=== PATIENT | male | born 2000 | race Caucasian/White ===

== ENCOUNTER 2021-06-16 07:25 | Inpatient (IN) ==
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
[2021-06-16 08:21] LABS: Basophils # (auto) 0.02 K/uL (0-0.2); Basophils % (auto) 0.3 %; Eosinophils # (auto) 0.07 K/uL (0-0.5); Hematocrit (blood only) 42.2 % (42-52); Hemoglobin 14.5 g/dL (14.0-18.0); Immature Granulocytes # (auto) 0.01 K/uL (0.00-0.02); Immature Granulocytes % (auto) 0.1 %; Lymphocytes # (auto) 2.01 K/uL (1.2-3.4); Lymphocytes % (auto) 29.8 %; Mean Corpuscular Hemoglobin 30.3 pg (25-34); Mean Corpuscular Hgb Conc 34.4 g/dL (32-36); Mean Corpuscular Volume 88.1 fL (80-100); Mean Platelet Volume 8.8 fL (7.4-10.4); Monocytes # (auto) 0.69 K/uL (0.11-0.59); Monocytes % (auto) 10.2 %; Neutrophils # (auto) 3.95 K/uL (1.4-6.5); Neutrophils % (auto) 58.6 %; Platelet Count 273 K/uL (130-400); RDW Coefficient of Variation 12.7 % (11.5-14.5); RDW Standard Deviation 41.1 fL (36.4-46.3); Red Blood Count 4.79 M/uL (4.7-6.1); White Blood Count 6.75 K/uL (4.8-10.8)
[2021-06-16 08:27] LABS: Appearance Urine Clear (Clear); Bilirubin Urine Negative (Negative); Blood Urine Negative (Negative); Color Urine Yellow; Glucose Urine UA Negative (Negative); Ketones Urine Negative (Negative); Leukocyte Esterase Urine Negative (Negative); Nitrite Urine Negative (Negative); Protein Urine Negative (Negative); Specific Gravity Urine 1.003 (1.000-1.030); Urobilinogen Urine Negative (Negative)
[2021-06-16 08:43] LABS: Alanine Aminotransferase 15 U/L (7-52); Albumin Globulin Ratio 1.6 (0.9-2); Albumin Level 4.7 gm/dl (3.4-5.0); Alkaline Phosphatase 58 U/L (34-104); Anion Gap 8 (3-11); Aspartate Aminotransferase 18 U/L (13-39); BUN Creatinine Ratio 18.9 (10-20); Bilirubin,Total 0.3 mg/dl (0.2-1.0); Blood Urea Nitrogen 14 mg/dl (6-23); Calcium 9.6 mg/dl (8.5-10.1); Carbon Dioxide 25 mmol/L (21-32); Chloride 105 mmol/L (98-107); Creatinine Clr Calc Pharmacy 168.2 ml/min; Est GFR (African American) > 150.0 ml/min; Est GFR (Non-African American) 131.9 ml/min; Glucose 96 mg/dl (70-99(Fasting)); Potassium 3.9 mmol/L (3.5-5.1); Sodium 138 mmol/L (136-145); Total Protein 7.7 gm/dl (6.0-8.3)
[2021-06-16 08:51] LABS: Acetaminophen < 3 ug/ml (10-30); Salicylate < 3.0 mg/dl (3.0-30)
[2021-06-16 08:53] LABS: Amphetamines+Metham, Urine Neg (Neg); Barbiturates, Urine Neg (Neg); Benzodiazepine, Urine Neg (Neg); Cocaine, Urine Neg (Neg); MDMA (Ecstacy), Urine Neg (Neg); Methadone, Urine Neg (Neg); Opiate, Urine Neg (Neg); Phencyclidine, Urine Neg (Neg)
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
[2021-06-16 11:11] LABS: Influenza A virus by PCR Negative (Neg); Influenza B virus by PCR Negative (Neg); RSV by PCR Negative (Neg)
[2021-06-16 11:34] LABS: SARS CoV2 RNA(COVID-19) InHosp POSITIVE (Negative)
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
[2021-06-16] MEDS: traZODone HCL 50 MG TAB PO SCH (20:06)
[2021-06-17] MEDS: ENOXAPARIN INJ 40 MG/0.4 ML SYR SQ SCH (09:54)
[2021-06-17] MEDS: buPROPion XL 150 MG TABCR PO SCH (09:54)
--- NOTE | 2021-06-17 11:36 | Psychiatric Progress Note ---
Date of Service June 17, 2021 Impression / Recommendations Impression 21 yo with history of MDD and PTSD with worsening depression and SI with plans and rehearsal behaviors and self-harm via cutting admitted medically due to COVID+ status. Diagnostically consistent with MDD with anxious distress and PTSD. The patient is deemed unstable and requires hospitalization for diagnostic clarification, safety and stabilization, medication management and development of further coping skills. Will be treated with inclusive approach on the medical floor including psychiatry, social work and recreational therapy while being positive for COVID+ with goal of eventual transfer to inpatient psychiatry if he has two back to back negative COVID tests as due to being asymptomatic unclear when COVID symptoms began. Acute risk of self-harm is high given SI with plans and rehearsal behaviors. 06/17/21: Tolerating initiation of Wellbutrin and trazodone, no withdrawal side effects from escitalopram, remains very depressed with SI. Plan: Continue trazodone 50mg qhs and Wellbutrin XL 150mg qd. Reviewed treatment team plan, will provide with unit workbook and therapeutic activities to help support him while he's on the medical floor (1) MDD (major depressive disorder), recurrent episode, severe: (2) Suicidal ideation: (3) Post traumatic stress disorder (PTSD): 06/16/21: -1:1 observation -Cannot leave AMA, would meet 302 criteria -Recheck COVID status in 1-2 days (will need two [id number] tests, >24 hours apart, one must be PCR test for consideration for psych inpt admission at [facility]) -start trazodone 50mg qhs -d/c escitalopram start Wellbutrin XL 150mg qd Risk Factors Assessment Male: Yes : Yes Do You Have Access To A Gun?: No Health Problems: No Mental Health Diagnoses: Yes Substance Use Disorders: No Previous Attempt: No Family History of Suicide: No Previous Psychiatric Hospitalization: No Hopelessness: Yes Smoker: No Protective Factors Assessment Employed: Yes Stable Relationships: Yes Good Rapport with Provider: Yes Interval History Identifying Information 21 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 Psychiatry was consulted for recommendations and management. Chief Complaint "I wish I could be on the psych unit". Review of Systems Notes see HPI Telehealth Telehealth Options: 2-way audio and video (via zoom) For the duration of the visit, provider was performing the assessment from: The same facility as the patient After establishing a telemedicine visit, patient was: Patient was verified with two unique identifiers, Patient/authorized rep acknowledged consent and und erstanding and Gave permission to continue telehealth session Total Time Spent (minutes): 25 Subjective Subjective Patient was seen & assessed and interval progress reviewed with treatment team nursing and social work. Upset he can't be on the inpatient unit, difficult to have 1:1 all the time. Sleep was somewhat difficult due to lights being on and some noise. Appetite is stable. Still having SI but feels safe here as there is "nothing to use in the hospital". No side effects from the Wellbutrin XL nor trazodone. Physical Exam Psychiatric A+Ox3, euthymic affect Orientation: alert and oriented x 3 Speech: normal rate/rhythm/volume of speech Mood: + depressed mood Thought Process: goal directed thought process Thought Content: reality based without delusions Suicidal Thoughts: denies suicidal intent (feels safe in the hospital ); + reports suicidal thoughts and + reports suicidal plan Homicidal Thoughts: denies homicidal thoughts Hallucinations: no auditory hallucinations and no visual hallucinations Cognition: recent memory grossly intact, remote memory grossly intact, attention grossly intact and language grossly intact Estimated Intelligence: consistent with education level Insight: + fair insight Judgement: + fair judgement Vital Signs (Past 24 Hours) Last Vital Signs Temp 36.4 C L 06/16/21 22:45 Pulse 77 06/16/21 22:45 Resp 18 06/16/21 22:45 BP 132/75 06/16/21 22:45 Pulse Ox 96 06/16/21 22:45 Results & Data ([facility]) Laboratory Results Laboratory Results - last 24 hr 06/16/21 10:15 SARS-CoV-2 (PCR) POSITIVE A* Influenza Type A (PCR) Negative Influenza Type B (PCR) Negative RSV (RT-PCR) Negative Current Inpatient Medications Current Inpatient Medications: Current Inpatient Medications Acetaminophen (Acetaminophen 325 Mg Tab) 650 mg PO Q4H PRN PRN Reason: pain/fever Stop: 07/16/21 09:08 Bupropion HCl (Bupropion Xl 150 Mg Tabcr) 150 mg PO QAM JONATHAN Stop: 07/17/21 08:59 Last Admin: 06/17/21 09:54 Dose: 150 mg Documented by: Enoxaparin Sodium (Enoxaparin Inj 40 Mg/0.4 Ml Syr) 40 mg SQ QAM JONATHAN Stop: 07/17/21 08:59 Last Admin: 06/17/21 09:54 Dose: 40 mg Documented by: Trazodone HCl (Trazodone Hcl 50 Mg Tab) 50 mg PO HS JONATHAN Stop: 07/16/21 20:59 Last Admin: 06/16/21 20:06 Dose: 50 mg Documented by:
[2021-06-17] MEDS: ACETAMINOPHEN 325 MG TAB PO PRN ×2 (18:34→23:32)
--- NOTE | 2021-06-17 20:37 | Hospitalist Progress Note ---
Date of Service June 17, 2021 Assessment & Plan (1) Suicidal ideation: Plan: Patient has been having suicidal thoughts. Brought in by police. Patient cannot sign out AMA. Consult psych. Appreciate input. Recheck COVID status in 1-2 days (will need two [id number] tests, >24 hours apart, one must be PCR test for consideration for psych inpt admission at [facility]) start trazodone 50mg qhs -d/c escitalopram start Wellbutrin XL 150mg qd Due to being COVID 19 postive and confirmed by PCR testing, patient will be on the medical service. (2) MDD (major depressive disorder), recurrent episode, severe: Plan: Patient on trazodone, wellbutrin (3) SARS-CoV-2 positive: Plan: Asymptomatic. will repeat test in 2 days. Needs 2 negative tests before transferring to a psych hospital Admission and Anticipated Discharge Date Admission Date: June 16, 2021 Subjective Patient reports no new symptoms. Review of Systems Review of Systems: All systems reviewed & are unremarkable except as noted in HPI & below Physical Exam Constitutional: WD/WN, vitals as above Eyes: PERRL, conjunctivae normal, anicteric sclerae ENMT: external ear and nose normal, oropharynx normal Neck: trachea midline, no thyromegaly Respiratory: normal respiratory effort, lungs clear to auscultation Cardiovascular: RRR, no murmur, no edema Gastrointestinal (Abdomen): normal bowel sounds, soft, nontender, no hepatosplenomegaly Musculoskeletal: no cyanosis or clubbing, extremities motor strength 5/5 Skin: no rashes, warm and dry Neurologic: PERRL, EOMI, accommodation nl, no face palsy, no dysarthria Psychiatric: A+Ox3, euthymic affect Lymphatic: no cervical or axillary lymphadenopathy Results & Data Results & Data ([facility] [place]) Vital Signs (Past 12 Hours) Vital Signs Temp Pulse Resp BP Pulse Ox 06/17/21 16:36 36.5 C 79 16 118/66 96 PG Care Time/CCT Total # of Minutes Spent Total Time Spent with Patient: Total time spent is greater than 50% in coordination of care (as documented) at patient's floor/unit and/or counseling patient: Coding Level of Care Code 47317 Subseq Hosp Care Lvl 2 Diagnoses Suicidal ideation R45.851 MDD (major depressive disorder), recurrent episode, severe F33.2 SARS-CoV-2 positive U07.1
[2021-06-17] MEDS: traZODone HCL 50 MG TAB PO SCH (21:05)
[2021-06-18] MEDS: buPROPion XL 150 MG TABCR PO SCH (09:14)
[2021-06-18] MEDS: ENOXAPARIN INJ 40 MG/0.4 ML SYR SQ SCH (09:14)
--- NOTE | 2021-06-18 14:39 | Psychiatric Progress Note ---
Date of Service June 18, 2021 Impression / Recommendations Impression 21 yo with history of MDD and PTSD with worsening depression and SI with plans and rehearsal behaviors and self-harm via cutting admitted medically due to COVID+ status. Diagnostically consistent with MDD with anxious distress and PTSD. The patient is deemed unstable and requires hospitalization for diagnostic clarification, safety and stabilization, medication management and development of further coping skills. Will be treated with inclusive approach on the medical floor including psychiatry, social work and recreational therapy while being positive for COVID+ with goal of eventual transfer to inpatient psychiatry if he has two back to back negative COVID tests as due to being asymptomatic unclear when COVID symptoms began. Acute risk of self-harm is high given SI with plans and rehearsal behaviors. 06/18/21: Continue with Wellbutrin and trazodone, no withdrawal side effects from escitalopram, remains very depressed with SI. Plan: Continue trazodone 50mg qhs and Wellbutrin XL 150mg qd. Reviewed coping skills and creating virtual hope box. (1) MDD (major depressive disorder), recurrent episode, severe: (2) Suicidal ideation: (3) Post traumatic stress disorder (PTSD): 06/16/21: -1:1 observation -Cannot leave AMA, would meet 302 criteria -Recheck COVID status in 1-2 days (will need two [id number] tests, >24 hours apart, one must be PCR test for consideration for psych inpt admission at [facility]) -start trazodone 50mg qhs -d/c escitalopram start Wellbutrin XL 150mg qd Risk Factors Assessment Male: Yes : Yes Do You Have Access To A Gun?: No Health Problems: No Mental Health Diagnoses: Yes Substance Use Disorders: No Previous Attempt: No Family History of Suicide: No Previous Psychiatric Hospitalization: No Hopelessness: Yes Smoker: No Protective Factors Assessment Employed: Yes Stable Relationships: Yes Good Rapport with Provider: Yes Interval History Identifying Information 21 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 Psychiatry was consulted for recommendations and management. Chief Complaint "I'm ok". Review of Systems Notes see subjective Telehealth Telehealth Options: 2-way audio and video For the duration of the visit, provider was performing the assessment from: The same facility as the patient After establishing a telemedicine visit, patient was: Patient was verified with two unique identifiers, Patient/authorized rep acknowledged consent and understanding and Gave permission to continue telehealth session Total Time Spent (minutes): 20 Subjective Subjective Patient was seen & assessed and interval progress reviewed with treatment team nursing and social work. Met with [facility] providers today and saw psychiatric liasons last night and today. Slept well last night, with only one awakening for vital signs, and trazodone helped, no morning fatigue. Wellbutrin XL with no side effects so far. Did have a headache yesterday and took two prn doses of acetaminophen. Still having SI "but not as bad as it has been". Reviewed coping strategies. Physical Exam Psychiatric Orientation: alert and oriented x 3 Apperance: appropriately dressed and appropriately groomed Eye Contact: good eye contact Motor Behavior: no abnormal motor movements Speech: normal rate/rhythm/volume of speech Affect: + depressed affect Mood: + depressed mood Thought Process: goal directed thought process Thought Content: reality based without delusions Suicidal Thoughts: denies suicidal plan and denies suicidal intent; + reports suicidal thoughts (feels safe in the hospital ) Homicidal Thoughts: denies homicidal thoughts Hallucinations: no auditory hallucinations and no visual hallucinations Cognition: recent memory grossly intact, remote memory grossly intact, attention grossly intact and language grossly intact Estimated Intelligence: consistent with education level Insight: + fair insight Judgement: + fair judgement Vital Signs (Past 24 Hours) Last Vital Signs Temp 36.9 C 06/18/21 08:46 Pulse 64 06/18/21 08:46 Resp 16 06/18/21 08:46 BP 100/58 L 06/18/21 08:46 Pulse Ox 97 06/18/21 08:46 Results & Data ([facility]) Current Inpatient Medications Current Inpatient Medications: Current Inpatient Medications Acetaminophen (Acetaminophen 325 Mg Tab) 650 mg PO Q4H PRN PRN Reason: pain/fever Stop: 07/16/21 09:08 Last Admin: 06/17/21 23:32 Dose: 650 mg Documented by: Bupropion HCl (Bupropion Xl 150 Mg Tabcr) 150 mg PO QAM JONATHAN Stop: 07/17/21 08:59 Last Admin: 06/18/21 09:14 Dose: 150 mg Documented by: Enoxaparin Sodium (Enoxaparin Inj 40 Mg/0.4 Ml Syr) 40 mg SQ QAM [facility] Stop: 07/17/21 08:59 Last Admin: 06/18/21 09:14 Dose: 40 mg Documented by: Trazodone HCl (Trazodone Hcl 50 Mg Tab) 50 mg PO HS [facility] Stop: 07/16/21 20:59 Last Admin: 06/17/21 21:05 Dose: 50 mg Documented by:
--- NOTE | 2021-06-18 20:53 | Hospitalist Progress Note ---
Date of Service June 18, 2021 Assessment & Plan (1) Suicidal ideation: Plan: Patient has been having suicidal thoughts. Brought in by police. Patient cannot sign out AMA. Consult psych. Appreciate input. start trazodone 50mg qhs -d/c escitalopram start Wellbutrin XL 150mg qd Due to being COVID 19 postive and confirmed by PCR testing, patient will be on the medical service. Repeated test on 06/18 was positive. Will recheck in 2 days (Tuesday) (2) MDD (major depressive disorder), recurrent episode, severe: Plan: Patient on trazodone, wellbutrin (3) SARS-CoV-2 positive: Plan: Asymptomatic. 3 positive tests. will repeat test on Tuesday. Will need 2 consecutive negative test 24 hours apart with one test being PCR. 10 +days post test should also be sufficient. Admission and Anticipated Discharge Date Admission Date: June 16, 2021 Subjective Patient reports no new symptoms. Review of Systems Review of Systems: All systems reviewed & are unremarkable except as noted in HPI & below Physical Exam Constitutional: WD/WN, vitals as above Results & Data Results & Data ([facility]) Vital Signs (Past 12 Hours) Vital Signs Temp Pulse Resp BP Pulse Ox 06/18/21 15:25 36.6 C 79 16 96/59 L 97 PG Care Time/CCT Total # of Minutes Spent Total Time Spent with Patient: Total time spent is greater than 50% in coordination of care (as documented) at patient's floor/unit and/or counseling patient: Coding Level of Care Code 43800 Subseq Hosp Care Lvl 1 Diagnoses Suicidal ideation R45.851 MDD (major depressive disorder), recurrent episode, severe F33.2 SARS-CoV-2 positive U07.1
[2021-06-18] MEDS: traZODone HCL 50 MG TAB PO SCH (21:19)
[2021-06-19] MEDS: ENOXAPARIN INJ 40 MG/0.4 ML SYR SQ SCH (08:21)
[2021-06-19] MEDS: buPROPion XL 150 MG TABCR PO SCH (09:01)
--- NOTE | 2021-06-19 11:24 | Psychiatric Progress Note ---
Date of Service June 19, 2021 Impression / Recommendations Impression 21 yo with history of MDD and PTSD with worsening depression and SI with plans and rehearsal behaviors and self-harm via cutting admitted medically due to COVID+ status. Diagnostically consistent with MDD with anxious distress and PTSD. The patient is deemed unstable and requires hospitalization for diagnostic clarification, safety and stabilization, medication management and development of further coping skills. Being treated with inclusive approach on the medical floor including psychiatry, social work and recreational therapy while being positive for COVID+ with goal of eventual transfer to inpatient psychiatry if he has two back to back negative COVID tests as due to being asymptomatic unclear when COVID symptoms began or at completion of 10 days of isolation. Acute risk of self-harm is high given SI with plans and rehearsal behaviors. 06/19/21: Repeat COVID test positive. Hospitalist will repeat again on 06/20/21. Continue with Wellbutrin and trazodone, no withdrawal side effects from escitalopram, remains very depressed with intermittent SI and strong urges to self-harm. Plan: Continue trazodone 50mg qhs and Wellbutrin XL 150mg qd. Could consider addition of prazosin in the future if bad dreams persist, asked him to track these. Reviewed coping skills and processed challenge of remaining in isolation due to COVID+ status. Discussed options for transfer to inpatient psych facility that accepts COVID+ patients but he prefers to stay at [facility] with consult service as we are doing currently until he is safe for transfer to psychiatric unit with negative COVID tests or after completed 10 days of isolation. (1) MDD (major depressive disorder), recurrent episode, severe: (2) Suicidal ideation: (3) Post traumatic stress disorder (PTSD): -1:1 observation -Cannot leave AMA, would meet 302 criteria -Recheck COVID status in 1-2 days (will need two [id number] tests, >24 hours apart, one must be PCR test for consideration for psych inpt admission at [facility]) -c/w trazodone 50mg qhs -d/c escitalopram and c/w Wellbutrin XL 150mg qd Risk Factors Assessment Male: Yes : Yes Do You Have Access To A Gun?: No Health Problems: No Mental Health Diagnoses: Yes Substance Use Disorders: No Previous Attempt: No Family History of Suicide: No Previous Psychiatric Hospitalization: No Hopelessness: Yes Smoker: No Protective Factors Assessment Employed: Yes Stable Relationships: Yes Good Rapport with Provider: Yes Interval History Identifying Information 21 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 Psychiatry was consulted for recommendations and management. Chief Complaint "I'm pretty frustrated and bored". Review of Systems Notes see subjective, stable appetite, denies any other physical complaints Telehealth Telehealth Options: 2-way audio and video For the duration of the visit, provider was performing the assessment from: The same facility as the patient After establishing a telemedicine visit, patient was: Patient was verified with two unique identifiers, Patient/authorized rep acknowledged consent and understanding and Gave permission to continue telehealth session Total Time Spent (minutes): 30 Subjective Subjective Patient was seen & assessed and interval progress reviewed with treatment team nursing and social work. Met with Hugo via zoom due to his positive COVID status alongside social work and recreational therapist from [facility]. We reviewed his treatment team plan. He noted ongoing frustration and boredom with having to be medical floor due to positive COVID status. Reviewed psych liason's update regarding infection control requirements for two negative tests or 10 days from positive test. He feels the trazodone is helping him fall asleep but some awakening at night, last night at 4am due to bad dream related to family. No side effects from Wellbutrin, he's not noticing any benefits yet. His therapist dropped off some workbooks, including a CBT focused one, which he is doing as well as reviewing the [facility] patient handbook. No SI today which he attributes to having no means available in the hospital, still thinking of plans he could act on if he were outside the hospital "thinking about what I could do in the future". He's considering deferment and was encouraged to contact [employer] [facility] student care and advocacy to discuss academic options and potential benefits/consequences of various decisions.Continues to have urges to self-harm but not acting on these because "I don't want to have any of my freedoms taken away more than the restrictions that I already have". Reviewed ways our service can contact to help support him. he denied any other concerns nor needs. Physical Exam Psychiatric Orientation: alert and oriented x 3 Apperance: appropriately dressed and appropriately groomed Eye Contact: good eye contact Motor Behavior: no abnormal motor movements Speech: normal rate/rhythm/volume of speech Affect: + depressed affect Mood: + depressed mood and + anxious mood Thought Process: goal directed thought process Thought Content: reality based without delusions Suicidal Thoughts: denies suicidal plan and denies suicidal intent; + reports suicidal thoughts (feels safe in the hospital ) Homicidal Thoughts: denies homicidal thoughts Hallucinations: no auditory hallucinations and no visual hallucinations Cognition: recent memory grossly intact, remote memory grossly intact, attention grossly intact and language grossly intact Estimated Intelligence: consistent with education level Insight: + fair insight Judgement: + fair judgement Vital Signs (Past 24 Hours) Last Vital Signs Temp 36.4 C L 06/19/21 09:05 Pulse 64 06/19/21 09:05 Resp 18 06/19/21 09:05 BP 112/66 06/19/21 09:05 Pulse Ox 98 06/19/21 09:05 Results & Data ([facility]) Laboratory Results Laboratory Results - last 24 hr 06/18/21 16:10 SARS-CoV-2, RNA, NAAT POSITIVE A* Current Inpatient Medications Current Inpatient Medications: Current Inpatient Medications Acetaminophen (Acetaminophen 325 Mg Tab) 650 mg PO Q4H PRN PRN Reason: pain/fever Stop: 07/16/21 09:08 Last Admin: 06/17/21 23:32 Dose: 650 mg Documented by: Bupropion HCl (Bupropion Xl 150 Mg Tabcr) 150 mg PO QAM [facility] Stop: 07/17/21 08:59 Last Admin: 06/19/21 09:01 Dose: 150 mg Documented by: Enoxaparin Sodium (Enoxaparin Inj 40 Mg/0.4 Ml Syr) 40 mg SQ QAM [facility] Stop: 07/17/21 08:59 Last Admin: 06/19/21 08:21 Dose: Not Given Documented by: Trazodone HCl (Trazodone Hcl 50 Mg Tab) 50 mg PO HS [facility] Stop: 07/16/21 20:59 Last Admin: 06/18/21 21:19 Dose: 50 mg Documented by:
--- NOTE | 2021-06-19 15:16 | Hospitalist Progress Note ---
Date of Service June 19, 2021 Assessment & Plan (1) Suicidal ideation: Plan: Followed by psychiatric medicine continue trazodone Due to being COVID 19 postive and confirmed by PCR testing, patient will be on the medical service. Repeated test on 06/18 was positive. Will recheck in 2 days (Tuesday) (2) MDD (major depressive disorder), recurrent episode, severe: Plan: Patient on trazodone, wellbutrin (3) SARS-CoV-2 positive: Plan: Asymptomatic. 3 positive tests. will repeat test on Tuesday. Will need 2 consecutive negative test 24 hours apart with one test being PCR. 10 +days post test should also be sufficient. Admission and Anticipated Discharge Date Admission Date: June 16, 2021 Subjective Tests positive again yesterday on 06/18, discussed with psychiatry team, will repeat Covid test tomorrow, if Covid test is persistently positive we will require 10-day quarantine before transferring to the psychiatric fuentes Review of Systems Constitutional: no fever and no sweats Eyes: no blind spots Ear, Nose, Mouth, Throat: no ear pain and no ear trauma Respiratory: no cough and no change in sputum Cardiovascular: no chest pain and no chest pain with activity Gastrointestinal: no abdominal pain Genitourinary: no dysuria Musculoskeletal: no back pain and no radicular pain Integumentary: no changing lesions Neurologic: no gait abnormality and no falls Psychiatric: no behavioral changes Endocrine: no fatigue Allergy / Immunological: no GI upset with certain foods Physical Exam Constitutional: WD/WN, vitals as above Eyes: PERRL, conjunctivae normal, anicteric sclerae ENMT: external ear and nose normal, oropharynx normal Neck: trachea midline, no thyromegaly Respiratory: normal respiratory effort, lungs clear to auscultation Cardiovascular: RRR, no murmur, no edema Gastrointestinal (Abdomen): normal bowel sounds, soft, nontender, no hepatosplenomegaly Musculoskeletal: no cyanosis or clubbing, extremities motor strength 5/5 Skin: no rashes, warm and dry Neurologic: PERRL, EOMI, accommodation nl, no face palsy, no dysarthria Psychiatric: A+Ox3, euthymic affect Orientation: alert and oriented x 3 Apperance: appropriately dressed and appropriately groomed Eye Contact: good eye contact Motor Behavior: no abnormal motor movements Speech: normal rate/rhythm/volume of speech Affect: + depressed affect Mood: + depressed mood and + anxious mood Thought Process: goal directed thought process Thought Content: reality based without delusions Suicidal Thoughts: denies callahan icidal plan and denies suicidal intent; + reports suicidal thoughts (feels safe in the hospital ) Homicidal Thoughts: denies homicidal thoughts Hallucinations: no auditory hallucinations and no visual hallucinations Cognition: recent memory grossly intact, remote memory grossly intact, attention grossly intact and language grossly intact Estimated Intelligence: consistent with education level Insight: + fair insight Judgement: + fair judgement Lymphatic: no cervical or axillary lymphadenopathy Results & Data Results & Data ([facility]) Vital Signs (Past 12 Hours) Vital Signs Temp Pulse Resp BP Pulse Ox 06/19/21 09:05 36.4 C L 64 18 112/66 98 06/19/21 04:46 117/77 PG Care Time/CCT Total # of Minutes Spent Total Time Spent with Patient: Total time spent is greater than 50% in coordination of care (as documented) at patient's floor/unit and/or counseling patient: Coding Level of Care Code 97841 Subseq Hosp Care Lvl 1 Diagnoses Suicidal ideation R45.851 MDD (major depressive disorder), recurrent episode, severe F33.2 SARS-CoV-2 positive U07.1
[2021-06-19] MEDS: traZODone HCL 50 MG TAB PO SCH (21:33)
[2021-06-20] MEDS: buPROPion XL 150 MG TABCR PO SCH (09:00)
[2021-06-20] MEDS: ENOXAPARIN INJ 40 MG/0.4 ML SYR SQ SCH ×2 (09:00→09:03)
--- NOTE | 2021-06-20 14:06 | Psychiatric Progress Note ---
Date of Service June 20, 2021 Impression / Recommendations Impression 21 yo with history of MDD and PTSD with worsening depression and SI with plans and rehearsal behaviors and self-harm via cutting admitted medically due to COVID+ status. Diagnostically consistent with MDD with anxious distress and PTSD. The patient is deemed unstable and requires hospitalization for diagnostic clarification, safety and stabilization, medication management and development of further coping skills. Being treated with inclusive approach on the medical floor including psychiatry, social work and recreational therapy while being positive for COVID+ with goal of eventual transfer to inpatient psychiatry if he has two back to back negative COVID tests as due to being asymptomatic unclear when COVID symptoms began or at completion of 10 days of isolation. Acute risk of self-harm is high given SI with plans and rehearsal behaviors. 06/20/21: some improvement, Continued inpatient hospitalization is medically necessary for ongoing monitoring and safety. (1) MDD (major depressive disorder), recurrent episode, severe: (2) Suicidal ideation: (3) Post traumatic stress disorder (PTSD): continue current meds and treatment plan today's COVID test is negative so possible transfer tomorrow if continues to test negative. 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 He remains asymptomatic. Patient seen in respiratory i solation with PPE. Chief Complaint "I think I'm doing better, mainly as I'm getting sleep." Review of Systems Notes denies physical complaints such as SHEPHERD, N, V, D. Subjective Subjective Patient was seen & assessed and interval progress reviewed with nursing and social work. He reports improved sleep. He is working through the unit patient handbook. He reports that if not in hospital he is not sure if could maintain safety as mood remains low and "this cutting thing is new, I'm not sure I have a handle on it yet." Physical Exam Psychiatric Orientation: alert and oriented x 3 Apperance: appropriately dressed and appropriately groomed Eye Contact: good eye contact Motor Behavior: no abnormal motor movements Speech: normal rate/rhythm/volume of speech Affect: + depressed affect Mood: + depressed mood Thought Process: goal directed thought process Thought Content: reality based without delusions Suicidal Thoughts: denies suicidal thoughts (unable to safety plan), denies suicidal plan and denies suicidal intent Homicidal Thoughts: denies homicidal thoughts Hallucinations: no auditory hallucinations and no visual hallucinations Cognition: recent memory grossly intact, remote memory grossly intact, attention grossly intact and language grossly intact Estimated Intelligence: consistent with education level Insight: + fair insight Judgement: + fair judgement Vital Signs (Past 24 Hours) Last Vital Signs Temp 36.6 C 06/20/21 08:04 Pulse 66 06/20/21 08:04 Resp 16 06/20/21 08:04 BP 106/67 06/20/21 08:04 Pulse Ox 98 06/20/21 08:04 Results & Data ([facility]) Laboratory Results Laboratory Results - last 24 hr 06/20/21 Unknown SARS-CoV-2, RNA, NAAT NEGATIVE Current Inpatient Medications Current Inpatient Medications: Current Inpatient Medications Acetaminophen (Acetaminophen 325 Mg Tab) 650 mg PO Q4H PRN PRN Reason: pain/fever Stop: 07/16/21 09:08 Last Admin: 06/17/21 23:32 Dose: 650 mg Documented by: Bupropion HCl (Bupropion Xl 150 Mg Tabcr) 150 mg PO QAM [facility] Stop: 07/17/21 08:59 Last Admin: 06/20/21 09:00 Dose: 150 mg Documented by: Enoxaparin Sodium (Enoxaparin Inj 40 Mg/0.4 Ml Syr) 40 mg SQ QAM [facility] Stop: 07/17/21 08:59 Last Admin: 06/20/21 09:03 Dose: Not Given Documented by: Trazodone HCl (Trazodone Hcl 50 Mg Tab) 50 mg PO HS [facility] Stop: 07/16/21 20:59 Last Admin: 06/19/21 21:33 Dose: 50 mg Documented by:
--- NOTE | 2021-06-20 18:35 | Hospitalist Progress Note ---
Date of Service June 20, 2021 Assessment & Plan (1) Suicidal ideation: Plan: Followed by psychiatric medicine Stayed in the medical floor due to positive Covid test, asymptomatic, today on 06/20 the Covid test is negative, the psychiatric unit requires another negative test after 24 hours (2) MDD (major depressive disorder), recurrent episode, severe: Plan: Patient on trazodone, wellbutrin (3) SARS-CoV-2 positive: Plan: Plan as mentioned above Admission and Anticipated Discharge Date Admission Date: June 16, 2021 Subjective Covid test negative, discussed with the psychiatry unit he required another negative test after 24 hours, order was placed for tomorrow Physical Exam Constitutional: WD/WN, vitals as above Eyes: PERRL, conjunctivae normal, anicteric sclerae ENMT: external ear and nose normal, oropharynx normal Neck: trachea midline, no thyromegaly Respiratory: normal respiratory effort, lungs clear to auscultation Cardiovascular: RRR, no murmur, no edema Gastrointestinal (Abdomen): normal bowel sounds, soft, nontender, no hepatosplenomegaly Musculoskeletal: no cyanosis or clubbing, extremities motor strength 5/5 Skin: no rashes, warm and dry Neurologic: PERRL, EOMI, accommodation nl, no face palsy, no dysarthria Psychiatric: A+Ox3, euthymic affect Orientation: alert and oriented x 3 Apperance: appropriately dressed and appropriately groomed Eye Contact: good eye contact Motor Behavior: no abnormal motor movements Speech: normal rate/rhythm/volume of speech Affect: + depressed affect Mood: + depressed mood and + anxious mood Thought Process: goal directed thought process Thought Content: reality based without delusions Suicidal Thoughts: denies suicidal plan and denies suicidal intent; + reports suicidal thoughts (feels saf e in the hospital ) Homicidal Thoughts: denies homicidal thoughts Hallucinations: no auditory hallucinations and no visual hallucinations Cognition: recent memory grossly intact, remote memory grossly intact, attention grossly intact and language grossly intact Estimated Intelligence: consistent with education level Insight: + fair insight Judgement: + fair judgement Lymphatic: no cervical or axillary lymphadenopathy Results & Data Results & Data ([facility]) Vital Signs (Past 12 Hours) Vital Signs Temp Pulse Resp BP Pulse Ox 06/20/21 15:32 36.7 C 65 18 110/65 98 06/20/21 08:04 36.6 C 66 16 106/67 98 PG Care Time/CCT Total # of Minutes Spent Total Time Spent with Patient: Total time spent is greater than 50% in coordination of care (as documented) at patient's floor/unit and/or counseling patient: Coding Level of Care Code 05320 Subseq Hosp Care Lvl 2 Diagnoses Suicidal ideation R45.851 MDD (major depressive disorder), recurrent episode, severe F33.2 SARS-CoV-2 positive U07.1
[2021-06-20] MEDS: traZODone HCL 50 MG TAB PO SCH (21:08)
[2021-06-21] MEDS ORDERED: buPROPion SR 150 MG TABCR PO SCH (09:00)
[2021-06-21 15:24] LABS: Influenza A virus by PCR Negative (Neg); Influenza B virus by PCR Negative (Neg); RSV by PCR Negative (Neg); SARS CoV2 RNA(COVID-19) InHosp NEGATIVE (Negative)
--- NOTE | 2021-06-21 15:42 | Psychiatric Progress Note ---
Date of Service June 21, 2021 Impression / Recommendations Impression 21 yo with history of MDD and PTSD with worsening depression and SI with plans and rehearsal behaviors and self-harm via cutting admitted medically due to COVID+ status. Diagnostically consistent with MDD with anxious distress and PTSD. The patient is deemed unstable and requires hospitalization for diagnostic clarification, safety and stabilization, medication management and development of further coping skills. Being treated with inclusive approach on the medical floor including psychiatry, social work and recreational therapy while being positive for COVID+ with goal of eventual transfer to inpatient psychiatry if he has two back to back negative COVID tests as due to being asymptomatic unclear when COVID symptoms began or at completion of 10 days of isolation. Acute risk of self-harm is high given SI with plans and rehearsal behaviors. 06/21/21: as per Dr. Quiros above. Mood essentially the same as yesterday. Continued inpatient hospitalization is medically necessary for ongoing mo nitoring and safety. (1) MDD (major depressive disorder), recurrent episode, severe: (2) Suicidal ideation: (3) Post traumatic stress disorder (PTSD): continue current meds and treatment plan pursuing out of network single case agreement for discharge to [facility] as 2 network units within 60 miles have no beds today. Dr. 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 He remains asymptomatic. Patient seen earlier today in respiratory isolation with PPE. Chief Complaint "I really want treatment, I need more before I go home." Review of Systems Notes no physical complaints as above Subjective Subjective Patient was seen & assessed and interval progress reviewed with nursing and social work. States he didn't sleep as well last night due to nightmares. Unable to contract for safety outside of the hospital. Has tested negative for COVID. Reviewed bed search process. Physical Exam Psychiatric A+Ox3, euthymic affect Orientation: alert and oriented x 3 Apperance: appropriately dressed and appropriately groomed Eye Contact: good eye contact Motor Behavior: no abnormal motor movements Speech: normal rate/rhythm/volume of speech Affect: + depressed affect Mood: + depressed mood and + anxious mood Thought Process: goal directed thought process Thought Content: reality based without delusions Suicidal Thoughts: denies suicidal plan and denies suicidal intent; + reports suicidal thoughts (feels safe in the hospital ) Homicidal Thoughts: denies homicidal thoughts Hallucinations: no auditory hallucinations and no visual hallucinations Cognition: recent memory grossly intact, remote memory grossly intact, attention grossly intact and language grossly intact Estimated Intelligence: consistent with education level Insight: + fair insight Judgement: + fair judgement Vital Signs (Past 24 Hours) Last Vital Signs Temp 36.9 C 06/21/21 14:48 Pulse 80 06/21/21 14:48 Resp 18 06/21/21 14:48 BP 114/63 06/21/21 14:48 Pulse Ox 100 06/21/21 14:48 Results & Data ([facility]) Laboratory Results Laboratory Results - last 24 hr 06/21/21 06/21/21 05:54 Unknown SARS-CoV-2 (PCR) NEGATIVE Influenza Type A (PCR) Negative Influenza Type B (PCR) Negative RSV (RT-PCR) Negative SARS-CoV-2, RNA, NAAT NEGATIVE Current Inpatient Medications Current Inpatient Medications: Current Inpatient Medications Acetaminophen (Acetaminophen 325 Mg Tab) 650 mg PO Q4H PRN PRN Reason: pain/fever Stop: 07/16/21 09:08 Last Admin: 06/17/21 23:32 Dose: 650 mg Documented by: Bupropion HCl (Bupropion Sr 150 Mg Tabcr) 150 mg PO QAM [facility] Stop: 07/21/21 08:59 Last Admin: 06/21/21 10:54 Dose: 150 mg Documented by: Trazodone HCl (Trazodone Hcl 50 Mg Tab) 50 mg PO HS [facility] Stop: 07/16/21 20:59 Last Admin: 06/20/21 21:08 Dose: 50 mg Documented by:
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
== END 2021-06-21 18:40 | DRG 178 ==
LOC: ED 07:25 → SUATTDRO 11:45 → EDINP 11:45 → 3W 20:49

== ENCOUNTER 2021-06-21 16:54 | Inpatient (IN) ==
[~2021-06-21 16:54] MED LIST: ACETAMINOPHEN 325 MG TAB PO PRN; ALUMINUM/MAGNESIUM SUSP 30 ML UDC PO PRN; BISMUTH SUBSALICYLATE LIQD 236 ML PO PRN; MAGNESIUM HYDROXIDE SUSP 30 ML UDC PO PRN; SODIUM CHLORIDE 0.65% NA SOLN 45 ML (OCEAN) PRN; hydrOXYzine HCl 25 MG TAB PO PRN
[2021-06-21] MEDS: traZODone HCL 50 MG TAB PO SCH (20:57)
[2021-06-21] MEDS ORDERED: Flu Vaccine (Fluarix) 0.5mL SYR (Standard Dose) IM ONE (21:15)
[2021-06-22] MEDS: traZODone HCL 50 MG TAB PO SCH ×2 (01:49→21:08)
[2021-06-22] MEDS: buPROPion SR 150 MG TABCR PO SCH (10:28)
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
[2021-06-23] MEDS: buPROPion SR 150 MG TABCR PO SCH (08:59)
--- NOTE | 2021-06-23 15:45 | Psychiatric Progress Note ---
Date of Service June 23, 2021 Impression / Recommendations Impression 21 yo with history of MDD and PTSD with worsening depression and SI with plans and rehearsal behaviors and self-harm via cutting admitted medically 06/16/21 due to COVID+ status. He remained in repiratory isolationg for 5 days pending 2 negative COVID tests with transfer to the unit last pm. 06/23/21--recurrence of SI today in anticipation of family meeting, seems disconnected when discusses plan (1) MDD (major depressive disorder), recurrent episode, severe: (2) Post traumatic stress disorder (PTSD): 06/23/21: Titrate Wellbutrin XL 300 mg daily. 06/22/21: The patient was admitted to the [facility] ([facility] mental health unit) on q15 min checks (behavioral with suicide precautions) for safety. The patient will participate in group, recreational, and milieu therapies and will be offered additional individual and family sessions as clinically appropriate. Continue trazodone and Wellbutrin trial, he remains aware of SI warnings/black box with antidepressants. He would prefer to be on Wellbutrin XL formulation for longer duration of action now that sleep improved with trazodone. 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 He was admitted to the psychiatry unit on 06/21/21 on a 201 commitment. Chief Complaint "I just feel worse today, there's the meeting with my mom and I just don't understand how I can keep myself safe." Review of Systems Sleep Information Total Hours of Sleep: 6.5 Sleep Comments: pt given trazodone per rn. pt on q-15 minute checks Meal Information Percent Meal Consumed - Breakfast: 100 Percent Meal Consumed - Lunch: 100 Percent Meal Consumed - Dinner: 100 Subjective Subjective Patient was seen & assessed and interval progress reviewed with nursing and social work. Reported his attachment to recent cutting behaviors to calm down, likes the pressure on arms and the blood by using the butter knife. 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 Reports he doesn't feel that the good that could come at some point in life would outweigh the amount of hurt to get there so in that sense he's still experiencing suicidal ideation. Physical Exam Psychiatric Orientation: alert and oriented x 3 Apperance: appropriately dressed and appropriately groomed Eye Contact: good eye contact Motor Behavior: no abnormal motor movements Speech: normal rate/rhythm/volume of speech Affect: + depressed affect Mood: + depressed mood Thought Process: goal directed thought process Thought Content: reality based without delusions Suicidal Thoughts: denies suicidal intent; + reports suicidal thoughts and + reports suicidal plan (cut) Homicidal Thoughts: denies homicidal thoughts Hallucinations: no auditory hallucinations and no visual hallucinations Cognition: attention grossly intact and language grossly intact Estimated Intelligence: consistent with education level Insight: + limited insight Judgement: + limited judgement Vital Signs (Past 24 Hours) Last Vital Signs Temp 36.3 C L 06/23/21 06:41 Pulse 85 06/23/21 06:42 Resp 16 06/23/21 06:41 BP 100/58 L 06/23/21 06:42 Pulse Ox 100 06/21/21 19:34 Results & Data ([facility]) Current Inpatient Medications Current Inpatient Medications: Current Inpatient Medications Acetaminophen (Acetaminophen 325 Mg Tab) 650 mg PO Q4H PRN PRN Reason: Headache or Minor Fever Stop: 07/21/21 16:53 Al Hydrox/Mg Hydrox/Simethicone (Aluminum/Magnesium Susp 30 Ml Udc) 30 ml PO Q4H PRN PRN Reason: GI Upset Stop: 07/21/21 16:53 Bismuth Subsalicylate (Bismuth Subsalicylate Liqd 236 Ml) 15 ml PO UD PRN PRN Reason: Loose Stool Stop: 07/21/21 16:53 Bupropion HCl (Bupropion Sr 150 Mg Tabcr) 150 mg PO QAM JONATHAN Stop: 07/22/21 10:14 Last Admin: 06/23/21 08:59 Dose: 150 mg Documented by: Hydroxyzine HCl (Hydroxyzine Hcl 25 Mg Tab) 50 mg PO HSZ PRN PRN Reason: Insomnia Stop: 07/21/21 16:53 Hydroxyzine HCl (Hydroxyzine Hcl 25 Mg Tab) 25 mg PO Q4H PRN PRN Reason: Anxiety Stop: 07/21/21 16:53 Magnesium Hydroxide (Magnesium Hydroxide Susp 30 Ml Udc) 30 ml PO DAILY PRN PRN Reason: Constipation Stop: 07/21/21 16:53 Sodium Chloride (Sodium Chloride 0.65% Na Soln 45 Ml (Angelica)) 1 - 2 sprays NA PRN PRN PRN Reason: Nasal Dryness/Congestion Stop: 07/21/21 16:53 Trazodone HCl (Trazodone Hcl 50 Mg Tab) 50 mg PO HS JONATHAN Stop: 07/21/21 20:59 Last Admin: 06/22/21 21:08 Dose: 50 mg Documented by: Mental Health & Subst Abuse Tx Psychiatrist Name of Psychiatrist: ZINA Ervin Psychiatrist's Date of Appointment with Psychiatrist: 06/30/21 Time of Appointment with Psychiatrist: 11:00 a.m. Psychiatric Appointment Comment: In person - [facility] Therapist Name of Therapist: Dr. Teri Shepherd Therapist's Electronics Technology Instructor Name of Electronics Technology Instructor: ZINA Virgen Phone Number for Electronics Technology Instructor: [phone] Date of Appointment with Electronics Technology Instructor: 06/25/21 Time of Appointment with Electronics Technology Instructor: 2:00 p.m. Case Management Appointment Comment: She will call you Post Discharge Appointments Primary Care Physician Name Of Family Doctor: [facility] Primary Care Time of Appointment with PCP: Please follow up as needed Provider Appointment Comment: [facility] Contact Information Discharge Discharge Address: [address] [place] [address], [place] [address]
[2021-06-23] MEDS: traZODone HCL 50 MG TAB PO SCH (22:00)
[2021-06-24] MEDS: buPROPion XL 300 MG TABCR PO SCH (08:57)
--- NOTE | 2021-06-24 13:44 | Psychiatric Progress Note ---
Date of Service June 24, 2021 Impression / Recommendations Impression 21 yo with history of MDD and PTSD with worsening depression and SI with plans and rehearsal behaviors and self-harm via cutting admitted medically 06/16/21 due to COVID+ status. He remained in repiratory isolationg for 5 days pending 2 negative COVID tests with transfer to the unit last pm. 06/23/21--processing family meeting (1) MDD (major depressive disorder), recurrent episode, severe: (2) Post traumatic stress disorder (PTSD): 06/24/21: tolerating Wellbutrin increase. Safety planning. 06/23/21: Titrate Wellbutrin XL 300 mg daily. 06/22/21: The patient was admitted to the [facility] ([facility] mental health unit) on q15 min checks (behavioral with suicide precautions) for safety. The patient will participate in group, recreational, and milieu therapies and will be offered additional individual and family sessions as clinically appropriate. Continue trazodone and Wellbutrin trial, he remains aware of SI warnings/black box with antidepressants. He would prefer to be on Wellbutrin XL formulation for longer duration of action now that sleep improved with trazodone. 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 He was admitted to the psychiatry unit on 06/21/21 on a 201 commitment. Chief Complaint "I blocked my mom", referring to rescinding his LARRY. Review of Systems Sleep Information Total Hours of Sleep: 5.5 Sleep Comments: pt given trazodone per rn. pt on q-15 minute checks Meal Information Percent Meal Consumed - Breakfast: 100 Percent Meal Consumed - Lunch: 100 Percent Meal Consumed - Dinner: 100 Subjective Subjective Patient was seen & assessed and interval progress reviewed with treatment team. Family session was emotional and "I knew nothing would change" but he is relieved that he doesn't have to deal with questions after hospitalization. He is feeling somewhat more stable than yesterday but also admits that he is mainly focussed on discharge soon as census is down and limited peers for group therapy. He discussed transition back to class and RA responsibilities. Physical Exam Psychiatric Orientation: alert and oriented x 3 Apperance: appropriately dressed and appropriately groomed Eye Contact: good eye contact Motor Behavior: no abnormal motor movements Speech: normal rate/rhythm/volume of speech Affect: + depressed affect Mood: + depressed mood Thought Process: goal directed thought process Thought Content: reality based without delusions Suicidal Thoughts: denies suicidal thoughts, denies suicidal plan (some urges to cut to SIB) and denies suicidal intent Homicidal Thoughts: denies homicidal thoughts Hallucinations: no auditory hallucinations and no visual hallucinations Cognition: attention grossly intact and language grossly intact Estimated Intelligence: consistent with education level Vital Signs (Past 24 Hours) Last Vital Signs Temp 36.4 C L 06/24/21 06:32 Pulse 74 06/24/21 06:33 Resp 16 06/24/21 06:32 BP 92/51 L 06/24/21 06:33 Pulse Ox 100 06/21/21 19:34 Results & Data ([facility]) Current Inpatient Medications Current Inpatient Medications: Current Inpatient Medications Acetaminophen (Acetaminophen 325 Mg Tab) 650 mg PO Q4H PRN PRN Reason: Headache or Minor Fever Stop: 07/21/21 16:53 Al Hydrox/Mg Hydrox/Simethicone (Aluminum/Magnesium Susp 30 Ml Udc) 30 ml PO Q4H PRN PRN Reason: GI Upset Stop: 07/21/21 16:53 Bismuth Subsalicylate (Bismuth Subsalicylate Liqd 236 Ml) 15 ml PO UD PRN PRN Reason: Loose Stool Stop: 07/21/21 16:53 Bupropion HCl (Bupropion Xl 300 Mg Tabcr) 300 mg PO QAM JONATHAN Stop: 07/24/21 08:59 Last Admin: 06/24/21 08:57 Dose: 300 mg Documented by: Hydroxyzine HCl (Hydroxyzine Hcl 25 Mg Tab) 50 mg PO HSZ PRN PRN Reason: Insomnia Stop: 07/21/21 16:53 Hydroxyzine HCl (Hydroxyzine Hcl 25 Mg Tab) 25 mg PO Q4H PRN PRN Reason: Anxiety Stop: 07/21/21 16:53 Magnesium Hydroxide (Magnesium Hydroxide Susp 30 Ml Udc) 30 ml PO DAILY PRN PRN Reason: Constipation Stop: 07/21/21 16:53 Sodium Chloride (Sodium Chloride 0.65% Na Soln 45 Ml (Meigs)) 1 - 2 sprays NA PRN PRN PRN Reason: Nasal Dryness/Congestion Stop: 07/21/21 16:53 Trazodone HCl (Trazodone Hcl 50 Mg Tab) 50 mg PO HS JONATHAN Stop: 07/21/21 20:59 Last Admin: 06/23/21 22:00 Dose: 50 mg Documented by: Mental Health & Subst Abuse Tx Psychiatrist Name of Psychiatrist: ZINA Ervin Psychiatrist's Date of Appointment with Psychiatrist: 06/30/21 Time of Appointment with Psychiatrist: 11:00 a.m. Psychiatric Appointment Comment: In person - [facility] Therapist Name of Therapist: Dr. Teri Shepherd Therapist's Date of Therapist Appointment: 06/29/21 Time of Therapist Appointment: 3:00 p.m. Therapy Appointment Comment: Allison Orta. [place], [place] Military Technology Specialist Name of Military Technology Specialist: ZINA Virgen Phone Number for Military Technology Specialist: [phone] Date of Appointment with Military Technology Specialist: 06/25/21 Time of Appointment with Military Technology Specialist: 2:00 p.m. Case Management Appointment Comment: She will call you Post Discharge Appointments Primary Care Physician Name Of Family Doctor: [facility] Primary Care Time of Appointment with PCP: Please follow up as needed Provider Appointment Comment: [facility] Contact Information Discharge Discharge Address: [address] [place] [id number]
[2021-06-24] MEDS: traZODone HCL 50 MG TAB PO SCH (21:21)
[2021-06-25] MEDS: buPROPion XL 300 MG TABCR PO SCH (08:18)
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
[2021-06-25] MEDS: traZODone HCL 50 MG TAB PO SCH (22:34)
[2021-06-26] MEDS: buPROPion XL 300 MG TABCR PO SCH (08:48)
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
[2021-06-26] MEDS ORDERED: DESTROY THIS MEDICATION ONE (09:08)
== END 2021-06-26 11:20 | disposition home or self-care (01) | DRG 885 ==
LOC: 3S 18:46
DX: Z88.6 Allergy status to analgesic agent; F43.12 Post-traumatic stress disorder, chronic; Z88.0 Allergy status to penicillin; Z91.09 Other allergy status, other than to drugs and biological substances; F33.2 Major depressive disorder, recurrent severe without psychotic features

== ENCOUNTER 2022-01-04 15:36 | Inpatient (IN) ==
[2022-01-04 16:47] LABS: Basophils # (auto) 0.03 K/uL (0-0.2); Basophils % (auto) 0.4 %; Eosinophils # (auto) 0.06 K/uL (0-0.50); Eosinophils % (auto) 0.7 %; Hemoglobin 15.1 g/dl (14.0-18.0); Immature Granulocytes # (auto) 0.01 K/uL (0.00-0.02); Immature Granulocytes % (auto) 0.1 %; Lymphocytes # (auto) 2.05 K/uL (1.2-3.4); Mean Corpuscular Hemoglobin 30.4 pg (25.0-34.0); Mean Corpuscular Hgb Conc 33.6 g/dL (32.0-36.0); Mean Corpuscular Volume 90.5 fL (80.0-100.0); Mean Platelet Volume 8.9 fL (9.4-12.4); Monocytes # (auto) 0.62 K/uL (0.24-0.82); Monocytes % (auto) 7.6 %; Neutrophils # (auto) 5.44 K/uL (1.4-6.5); Neutrophils % (auto) 66.2 %; Platelet Count 272 K/uL (130-400); RDW Coefficient of Variation 12.6 % (11.5-14.5); RDW Standard Deviation 41.5 fL (36.4-46.3); Red Blood Count 4.97 M/uL (4.63-6.08); White Blood Count 8.21 K/ul (4.8-10.8)
[2022-01-04 16:56] LABS: Appearance Urine Clear (Clear); Bilirubin Urine Negative (Negative); Blood Urine Negative (Negative); Color Urine Yellow; Glucose Urine UA Negative (Negative); Ketones Urine Negative (Negative); Leukocyte Esterase Urine Negative (Negative); Nitrite Urine Negative (Negative); Protein Urine Negative (Negative); Specific Gravity Urine 1.009 (1.000-1.030); Urobilinogen Urine Negative (Negative); pH Urine 6.5 (4.5-7.5)
[2022-01-04 17:08] LABS: Albumin Globulin Ratio 1.7 (0.9-2); Albumin Level 5.1 gm/dl (3.4-5.0); BUN Creatinine Ratio 10.6 (10-20); Bilirubin,Total 0.5 mg/dl (0.2-1.0); Calcium 9.9 mg/dl (8.5-10.1); Creatinine Clr Calc Pharmacy 122.4 ml/min; Est GFR (African American) 133.8 ml/min; Est GFR (Non-African American) 115.4 ml/min; Potassium 4.2 mmol/L (3.5-5.1); Total Protein 8.1 gm/dl (6.0-8.3)
[2022-01-04 17:14] LABS: Acetaminophen < 3 ug/ml (10-30); Salicylate < 3.0 mg/dl (3.0-30)
[2022-01-04 17:25] LABS: Amphetamines+Metham, Urine Neg (Neg); Barbiturates, Urine Neg (Neg); Benzodiazepine, Urine Neg (Neg); Cocaine, Urine Neg (Neg); MDMA (Ecstacy), Urine Pos (Neg); Methadone, Urine Neg (Neg); Opiate, Urine Neg (Neg); Phencyclidine, Urine Neg (Neg)
--- NOTE | 2022-01-04 18:36 | Emergency Department Note ---
Impression & Plan Suicidal ideation Admit to 3 S. ED Provider Note NAME: CAM MARTINEZ AGE: 21 SEX: M ARRIVES VIA: Walk-In INFORMANT: Patient ED PROVIDER(S): Naty Overton DO CHIEF COMPLAINT: Suicidal plans PLAN: Disposition: Admit to 3 S. Condition: Fair MEDICAL DECISION MAKING: This is a 21-year-old male patient who presents to the emergency department with suicidal ideation and 3 different plans. Patient has a history of depression. He states that he has become increasingly suicidal for the past couple of weeks since the college semester started. The patient has a superficial abrasion from cutting to his right upper leg. He denies any drug or alcohol use. The patient was medically cleared. He was excepted to 3 S. voluntarily. Triage Nursing notes reviewed and agree with them. Vital Signs: reviewed and unremarkable Differential diagnosis: Suicidal ideation, mood disorder, thought disorder Diagnostics interpreted by me: Laboratory studies: See below HPI: 21/M arrives for evaluation of suicidal ideation. Patient has had increasing depression since the college semester started and he has had thoughts of suicide. He describes multiple different plans as to how he would kill himself. He is willing to admit himself voluntarily. ROS: See above HPI for pertinent positives & negatives. A total of 10 systems reviewed and were otherwise negative. PAST MEDICAL HISTORY:Depression PAST SURGICAL HISTORY:See Below FAMILY HISTORY:See Below SOCIAL HISTORY:Senior at [employer]. He denies any drug or alcohol use. HOME MEDICATIONS:See list ALLERGIES:See list VITALS:See Below PHYSICAL EXAMINATION: HEENT: Head - normocephalic and atraumatic Pupils are equal, round, and reactive to light. Extraocular eye muscles are intact, and sclera are anicteric. Nose - moist nasal mucosa without discharge. Mouth - moist buccal mucosa. Oropharynx is nonerythematous and there is no tonsillar exudate or edema noted. Neck: Supple; no cervical lymphadenopathy Heart: Regular rate and rhythm. There is a normal S1 and S2 with no murmurs, clicks, or gallops appreciated. Lungs: Clear to auscultation bilaterally with no wheezes, rales, or rhonchi. Abdomen: Soft, completely nontender, nondistended, with good bowel sounds. There are no palpable pulsatile masses or hepatosplenomegaly. There is no guarding, rigidity, or rebound noted. Extremities: Superficial abrasion to the right proximal lateral thigh from self- injurious behavior. There are easily palpable peripheral pulses. Skin: warm and dry with good turgor and no rashes. ED COURSE: Times/Reassessments: 1650: The patient was evaluated in room A-5. Laboratory studies were drawn. The patient was medically cleared. Patient was evaluated by the ED psychiatric disease case manager. He was evaluated by staff from 3 . and will be admitted there. Naty Overton DO Past Med/Surg History Medical History Post traumatic stress disorder (PTSD) Social History Smoking Status: Never smoker Second Hand Exposure: No; Hx Alcohol Use: No Hx Substance Use: No Preferred Language: Bengali Communication Ability: Effective Director Of Corporate Communications Required: No Beliefs That Will Affect Care: None Current Living Situation Comment: Dorm- single room Feels Safe at Home: Yes Assistive Devices: None Allergies Allergies Allergy/AdvReac Type Severity Reaction Status Date / Time amoxicillin Allergy hives Verified 01/04/22 17:06 Penicillins Allergy hives Verified 01/04/22 17:06 menthol [From Icy Hot] AdvReac rash Verified 01/04/22 17:06 methyl salicylate AdvReac rash Verified 01/04/22 17:06 [From IcSportingo] Home Meds Home Medications Medication Instructions Recorded Confirmed bupropion HCl 300 mg 24 hr tablet, 300 mg PO DAILY 01/04/22 01/04/22 extended release (Wellbutrin XL) methylphenidate HCl 25 mg biphasic 25 mg PO BID 01/04/22 01/04/22 (20-80) extended release capsule sertraline 25 mg tablet (Zoloft) 25 mg PO DAILY 01/04/22 01/04/22 Previous Rx's Medication Instructions Recorded trazodone 50 mg tablet 50 mg PO HS 30 days #30 tabs 06/26/21 Results & Data (ED) Vital Signs Vital Signs - 24 hr 01/04/22 15:43 Temperature 36.6 C Temperature Source Temporal Artery Scan Pulse Rate 86 Respiratory Rate 16 Respiratory Effort / Characteristics Non-Labored Respiratory Depth Normal Blood Pressure 129/83 Blood Pressure Mean 98 Pulse Oximetry 100 Oxygen Delivery Method Room Air Sepsis Recent Fever Within 48 Hours No Sepsis New/Unexplained Change in Mental Status No Sepsis Action Taken by Nursing No Action Required Laboratory Data Result diagrams: 01/04/22 16:30 01/04/22 16:30 Lab Results 01/04/22 01/04/22 01/04/22 Range/Units 16:30 16:30 16:30 WBC 8.21 (4.8-10.8) K/ul RBC 4.97 (4.63-6.08) M/uL Hgb 15.1 (14.0-18.0) g/dl Hct 45.0 (40.1-51.0) % MCV 90.5 (80.0-100.0) fL MCH 30.4 (25.0-34.0) pg MCHC 33.6 (32.0-36.0) g/dL RDW Std Deviation 41.5 (36.4-46.3) fL RDW Coeff of Mariia 12.6 (11.5-14.5) % Plt Count 272 (130-400) K/uL MPV 8.9 L (9.4-12.4) fL Immature Gran % (Auto) 0.1 % Neut % (Auto) 66.2 % Lymph % (Auto) 25.0 % Nuckolls % (Auto) 7.6 % Eos % (Auto) 0.7 % Baso % (Auto) 0.4 % Neut # (Auto) 5.44 (1.4-6.5) K/uL Lymph # (Auto) 2.05 (1.2-3.4) K/uL [place]olls # (Auto) 0.62 (0.24-0.82) K/uL Eos # (Auto) 0.06 (0-0.50) K/uL Baso # (Auto) 0.03 (0-0.2) K/uL Immature Gran # (Auto) 0.01 (0.00-0.02) K/uL Sodium 137 (136-145) mmol/L Potassium 4.2 (3.5-5.1) mmol/L Chloride 102 (98-107) mmol/L Carbon Dioxide 29 (21-32) mmol/L Anion Gap 6 (3-11) BUN 10 (6-23) mg/dl Creatinine 0.94 (0.6-1.4) mg/dl Est Cr Clr Drug Dosing 122.4 ml/min Est GFR ( Amer) 133.8 ml/min Est GFR (Non-Af Amer) 115.4 ml/min BUN/Creatinine Ratio 10.6 (10-20) Glucose 95 (70-99(Fasting)) mg/dl Calcium 9.9 (8.5-10.1) mg/dl Total Bilirubin 0.5 (0.2-1.0) mg/dl AST 15 (13-39) U/L ALT 13 (7-52) U/L Alkaline Phosphatase 57 (34-104) U/L Total Protein 8.1 (6.0-8.3) gm/dl Albumin 5.1 H (3.4-5.0) gm/dl Globulin 3.0 (2.5-4.0) gm/dl Albumin/Globulin Ratio 1.7 (0.9-2) TSH 3.344 (0.300-4.500) uIu/ml Urine Color Urine Appearance (Clear) Urine pH (4.5-7.5) Ur Specific [place] (1.000-1.030) Urine Protein (Negative) Urine Glucose (UA) (Negative) Urine Ketones (Negative) Urine Blood (Negative) Urine Nitrite (Negative) Urine Bilirubin (Negative) Urine Urobilinogen (Negative) Ur Leukocyte Esterase (Negative) Salicylates (3.0-30) mg/dl Urine Opiates Screen (Neg) Ur Methadone, Qual (Neg) Acetaminophen (10-30) ug/ml Urine Barbiturates (Neg) Ur Phencyclidine (PCP) (Neg) U Amphetamin/Meth Scrn (Neg) MDMA (Ecstasy) Screen (Neg) U Benzodiazepines Scrn (Neg) Ur Cocaine Metabolite (Neg) U Marijuana (THC) Screen (Neg) Ethyl Alcohol mg/dL (<10.0) mg/dl SARS-CoV-2, RNA, NAAT (NEGATIVE) 01/04/22 01/04/22 01/04/22 Range/Units 16:30 16:30 16:32 WBC (4.8-10.8) K/ul RBC (4.63-6.08) M/uL Hgb (14.0-18.0) g/dl Hct (40.1-51.0) % MCV (80.0-100.0) fL MCH (25.0-34.0) pg MCHC (32.0-36.0) g/dL RDW Std Deviation (36.4-46.3) fL RDW Coeff of Mariia (11.5-14.5) % Plt Count (130-400) K/uL MPV (9.4-12.4) fL Immature Gran % (Auto) % Neut % (Auto) % Lymph % (Auto) % [place]olls % (Auto) % Eos % (Auto) % Baso % (Auto) % Neut # (Auto) (1.4-6.5) K/uL Lymph # (Auto) (1.2-3.4) K/uL [place] # (Auto) (0.24-0.82) K/uL Eos # (Auto) (0-0.50) K/uL Baso # (Auto) (0-0.2) K/uL Immature Gran # (Auto) (0.00-0.02) K/uL Sodium (136-145) mmol/L Potassium (3.5-5.1) mmol/L Chloride (98-107) mmol/L Carbon Dioxide (21-32) mmol/L Anion Gap (3-11) BUN (6-23) mg/dl Creatinine (0.6-1.4) mg/dl Est Cr Clr Drug Dosing ml/min Est GFR ( Amer) ml/min Est GFR (Non-Af Amer) ml/min BUN/Creatinine Ratio (10-20) Glucose (70-99(Fasting)) mg/dl Calcium (8.5-10.1) mg/dl Total Bilirubin (0.2-1.0) mg/dl AST (13-39) U/L ALT (7-52) U/L Alkaline Phosphatase (34-104) U/L Total Protein (6.0-8.3) gm/dl Albumin (3.4-5.0) gm/dl Globulin (2.5-4.0) gm/dl Albumin/Globulin Ratio (0.9-2) TSH (0.300-4.500) uIu/ml Urine Color Urine Appearance (Clear) Urine pH (4.5-7.5) Ur Specific [place] (1.000-1.030) Urine Protein (Negative) Urine Glucose (UA) (Negative) Urine Ketones (Negative) Urine Blood (Negative) Urine Nitrite (Negative) Urine Bilirubin (Negative) Urine Urobilinogen (Negative) Ur Leukocyte Esterase (Negative) Salicylates < 3.0 L (3.0-30) mg/dl Urine Opiates Screen (Neg) Ur Methadone, Qual (Neg) Acetaminophen < 3 L (10-30) ug/ml Urine Barbiturates (Neg) Ur Phencyclidine (PCP) (Neg) U Amphetamin/Meth Scrn (Neg) MDMA (Ecstasy) Screen (Neg) U Benzodiazepines Scrn (Neg) Ur Cocaine Metabolite (Neg) U Marijuana (THC) Screen (Neg) Ethyl Alcohol mg/dL < 10.0 (<10.0) mg/dl SARS-CoV-2, RNA, NAAT NEGATIVE (NEGATIVE) 01/04/22 01/04/22 Range/Units 16:40 16:40 WBC (4.8-10.8) K/ul RBC (4.63-6.08) M/uL Hgb (14.0-18.0) g/dl Hct (40.1-51.0) % MCV (80.0-100.0) fL MCH (25.0-34.0) pg MCHC (32.0-36.0) g/dL RDW Std Deviation (36.4-46.3) fL RDW Coeff of Mariia (11.5-14.5) % Plt Count (130-400) K/uL MPV (9.4-12.4) fL Immature Gran % (Auto) % Neut % (Auto) % Lymph % (Auto) % N[place]olls % (Auto) % Eos % (Auto) % Baso % (Auto) % Neut # (Auto) (1.4-6.5) K/uL Lymph # (Auto) (1.2-3.4) K/uL [place] # (Auto) (0.24-0.82) K/uL Eos # (Auto) (0-0.50) K/uL Baso # (Auto) (0-0.2) K/uL Immature Gran # (Auto) (0.00-0.02) K/uL Sodium (136-145) mmol/L Potassium (3.5-5.1) mmol/L Chloride (98-107) mmol/L Carbon Dioxide (21-32) mmol/L Anion Gap (3-11) BUN (6-23) mg/dl Creatinine (0.6-1.4) mg/dl Est Cr Clr Drug Dosing ml/min Est GFR ( Amer) ml/min Est GFR (Non-Af Amer) ml/min BUN/Creatinine Ratio (10-20) Glucose (70-99(Fasting)) mg/dl Calcium (8.5-10.1) mg/dl Total Bilirubin (0.2-1.0) mg/dl AST (13-39) U/L ALT (7-52) U/L Alkaline Phosphatase (34-104) U/L Total Protein (6.0-8.3) gm/dl Albumin (3.4-5.0) gm/dl Globulin (2.5-4.0) gm/dl Albumin/Globulin Ratio (0.9-2) TSH (0.300-4.500) uIu/ml Urine Color Yellow Urine Appearance Clear (Clear) Urine pH 6.5 (4.5-7.5) Ur Specific [place] 1.009 (1.000-1.030) Urine Protein Negative (Negative) Urine Glucose (UA) Negative (Negative) Urine Ketones Negative (Negative) Urine Blood Negative (Negative) Urine Nitrite Negative (Negative) Urine Bilirubin Negative (Negative) Urine Urobilinogen Negative (Negative) Ur Leukocyte Esterase Negative (Negative) Salicylates (3.0-30) mg/dl Urine Opiates Screen Neg (Neg) Ur Methadone, Qual Neg (Neg) Acetaminophen (10-30) ug/ml Urine Barbiturates Neg (Neg) Ur Phencyclidine (PCP) Neg (Neg) U Amphetamin/Meth Scrn Neg (Neg) MDMA (Ecstasy) Screen Pos H (Neg) U Benzodiazepines Scrn Neg (Neg) Ur Cocaine Metabolite Neg (Neg) U Marijuana (THC) Screen Neg (Neg) Ethyl Alcohol mg/dL (<10.0) mg/dl SARS-CoV-2, RNA, NAAT (NEGATIVE) Administered Medications Acetaminophen (Acetaminophen 325 Mg Tab) 650 mg PO Q4H PRN PRN Reason: Headache or Minor Fever Stop: 02/03/22 19:42 Last Admin: 01/04/22 20:23 Dose: 650 mg Documented By: TIKI Bupropion HCl (Bupropion Xl 300 Mg Tabcr) 300 mg PO DAILY JONATHAN Stop: 02/04/22 10:14 Last Admin: 01/05/22 11:28 Dose: 300 mg Documented By: BATSHEVA Sertraline HCl (Sertraline Hcl 50 Mg Tablet) 25 mg PO DAILY [facility] Stop: 02/04/22 10:14 Last Admin: 01/05/22 11:29 Dose: 25 mg Documented By: BATSHEVA Trazodone HCl (Trazodone Hcl 50 Mg Tab) 50 mg PO HS [facility] Stop: 02/03/22 20:59 Last Admin: 01/04/22 21:16 Dose: 50 mg Documented By: EW Discharge Plan Visit Data Chief Complaint: Mental Health Evaluation Stated Complaint: SUCIDAL THOUGHTS ED Provider: Naty Overton Discharge Problem: Suicidal ideation Patient Disposition: Admitted As Inpatient Discharge Instructions Interventions: ED Discharge Assessment Last Done: 01/04/22 20:25
[2022-01-04] MEDS ORDERED: ALUMINUM/MAGNESIUM SUSP 30 ML UDC PO PRN (19:43)
[2022-01-04] MEDS ORDERED: SODIUM CHLORIDE 0.65% NA SOLN 45 ML (OCEAN) PRN (19:43)
[2022-01-04] MEDS ORDERED: MAGNESIUM HYDROXIDE SUSP 30 ML UDC PO PRN (19:43)
[2022-01-04] MEDS ORDERED: BISMUTH SUBSALICYLATE LIQD 236 ML PO PRN (19:43)
[2022-01-04] MEDS ORDERED: hydrOXYzine HCl 25 MG TAB PO PRN ×2 (19:43)
[2022-01-04] MEDS: ACETAMINOPHEN 325 MG TAB PO PRN (20:23)
[2022-01-04] MEDS: traZODone HCL 50 MG TAB PO SCH (21:16)
[2022-01-05] MEDS: buPROPion XL 300 MG TABCR PO SCH (11:28)
[2022-01-05] MEDS: SERTRALINE HCL 50 MG TABLET PO SCH (11:29)
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
[2022-01-05] MEDS: traZODone HCL 50 MG TAB PO SCH (21:33)
[2022-01-06] MEDS: buPROPion XL 300 MG TABCR PO SCH (08:38)
[2022-01-06] MEDS: SERTRALINE HCL 50 MG TABLET PO SCH (08:39)
[2022-01-06] MEDS: ARIPiprazole 5 MG TAB PO SCH (12:04)
--- NOTE | 2022-01-06 14:33 | Psychiatric Progress Note ---
Date of Service January 06, 2022 Impression / Recommendations Impression 21 yo male with trauma hx, complex family dynamic, presents for 2nd inpatient hospitalization for SI, remains superficially involved in alot of activities but not functioning well, intense SI with plan to obtain gun. 01/06/2022: no change (1) MDD (major depressive disorder), recurrent episode, severe: Plan 01/06/22: Risks/benefits/alternatives were reviewed re: antipsychotics for adjunctive treatment of depression. Discussion included but was not limited to metabolic side effects, risks of TD and suicidal thoughts. There were no abnormal motor movements at baseline. Fasting glucose and lipid panel ordered for baseline monitoring. Agreed to a trial of Abilify 2.5 mg daily with plan to titrate. 01/05/22: The patient was admitted to the [facility] ([facility]) on q15 min checks (behavioral with suicide precautions) for safety. The patient will participate in group, recreational, and milieu therapies and will be offered additional individual and family sessions as clinically appropriate. Risks/benefits/alternatives reviewed re: current medications. Discussion included but was not limited to FDA warnings re: SI. Agrees to hold Ritalin 20 mg Bid per PDMP, continue Zoloft and Wellbutrin pending additional coordination with outpatient psychiatrist. At this point I would recommend augmentation with Abilify for treatment refractory depression. Inventory Assets Strengths: intelligent, employed Needs: increase social network, increase coping skills Suicide Risk Level Suicide Risk Level: High-Moderate (q15 min suicide checks) Risk Factors Assessment Male: Yes : Yes Do You Have Access To A Gun?: No Mental Health Diagnoses: Yes Substance Use Disorders: No Previous Psychiatric Hospitalization: Yes Protective Factors Assessment : No Employed: Yes ([employer]) Supportive Family: No Interval History Identifying Information CAM MARTINEZ is a 21-year-old M who currently lives in [facility], has a history of inpatient admission 06/21/21 for SI with rehearsal behaviors, and was admitted on 01/04/22 19:43 on a 201 voluntary commitment for SI with multiple plans. Chief Complaint "I'm the same." Review of Systems Sleep Information Total Hours of Sleep: 7.5 Meal Information Percent Meal Consumed - Breakfast: 100 Percent Meal Consumed - Lunch: 100 Percent Meal Consumed - Dinner: 80 Subjective Subjective Patient was seen & assessed and interval progress reviewed with treatment team. Staff report less irritability on evening shift. concerned about LOS given work, etc but accepting of work excuse. Dr. Ervin was able to confirm that res life aware of both his last and current hospitalization and will meet with him after discharge. Physical Exam Psychiatric Orientation: alert and oriented x 3 Apperance: appropriately dressed and appropriately groomed Eye Contact: good eye contact Motor Behavior: no abnormal motor movements Speech: normal rate/rhythm/volume of speech Affect: + depressed affect Mood: + depressed mood Thought Process: goal directed thought process Thought Content: reality based without delusions Suicidal Thoughts: denies suicidal intent (on unit); + reports suicidal thoughts and + reports suicidal plan Homicidal Thoughts: denies homicidal thoughts Hallucinations: no auditory hallucinations and no visual hallucinations Cognition: attention grossly intact and language grossly intact Estimated Intelligence: consistent with education level Insight: + limited insight Judgement: + limited judgement Vital Signs (Past 24 Hours) Last Vital Signs Temp 34.5 C L 01/06/22 06:00 Pulse 76 01/06/22 07:02 Resp 18 01/06/22 06:00 BP 91/56 L 01/06/22 07:02 Pulse Ox 98 01/04/22 20:31 O2 Del Method 01/04/22 20:31 Results & Data ([facility]) Current Inpatient Medications Current Inpatient Medications: Current Inpatient Medications Acetaminophen (Acetaminophen 325 Mg Tab) 650 mg PO Q4H PRN PRN Reason: Headache or Minor Fever Stop: 02/03/22 19:42 Last Admin: 01/04/22 20:23 Dose: 650 mg Al Hydrox/Mg Hydrox/Simethicone (Aluminum/Magnesium Susp 30 Ml Udc) 30 ml PO Q4H PRN PRN Reason: GI Upset Stop: 02/03/22 19:42 Aripiprazole (Aripiprazole 5 Mg Tab) 2.5 mg PO QAM JONATHAN Stop: 02/05/22 10:44 Last Admin: 01/06/22 12:04 Dose: 2.5 mg Bismuth Subsalicylate (Bismuth Subsalicylate Liqd 236 Ml) 15 ml PO PRN PRN PRN Reason: Loose Stool Stop: 02/03/22 19:42 Bupropion HCl (Bupropion Xl 300 Mg Tabcr) 300 mg PO DAILY JONATHAN Stop: 02/04/22 10:14 Last Admin: 01/06/22 08:38 Dose: 300 mg Hydroxyzine HCl (Hydroxyzine Hcl 25 Mg Tab) 50 mg PO HSZ PRN PRN Reason: Insomnia Stop: 02/03/22 19:42 Hydroxyzine HCl (Hydroxyzine Hcl 25 Mg Tab) 25 mg PO Q4H PRN PRN Reason: Anxiety Stop: 02/03/22 19:42 Magnesium Hydroxide (Magnesium Hydroxide Susp 30 Ml Udc) 30 ml PO DAILY PRN PRN Reason: Constipation Stop: 02/03/22 19:42 Sodium Chloride (Sodium Chloride 0.65% Na Soln 45 Ml ([place])) 1 - 2 sprays NA PRN PRN PRN Reason: Nasal Dryness/Congestion Stop: 02/03/22 19:42 Trazodone HCl (Trazodone Hcl 50 Mg Tab) 50 mg PO HS JONATHAN Stop: 02/03/22 20:59 Last Admin: 01/05/22 21:33 Dose: 50 mg Mental Health & Subst Abuse Tx Therapist Name of Therapist: Teri Shepherd
[2022-01-06] MEDS: ACETAMINOPHEN 325 MG TAB PO PRN (15:25)
[2022-01-06] MEDS: traZODone HCL 50 MG TAB PO SCH (22:15)
[2022-01-07] MEDS: ARIPiprazole 5 MG TAB PO SCH (08:52)
[2022-01-07] MEDS: buPROPion XL 300 MG TABCR PO SCH (08:53)
--- NOTE | 2022-01-07 14:25 | Psychiatric Progress Note ---
Date of Service January 07, 2022 Impression / Recommendations Impression 21 yo male with trauma hx, complex family dynamic, presents for 2nd inpatient hospitalization for SI, remains superficially involved in alot of activities but not functioning well, intense SI with plan to obtain gun. 01/07/2022: tolerating Abilify (1) MDD (major depressive disorder), recurrent episode, severe: Plan 01/07/22: fasting labs reviewed, increase Abilify to 5 mg daily. SW to meet with [employer] and student care representatives given repeat hospitalization. 01/06/22: Risks/benefits/alternatives were reviewed re: antipsychotics for adjunctive treatment of depression. Discussion included but was not limited to metabolic side effects, risks of TD and suicidal thoughts. There were no abnormal motor movements at baseline. Fasting glucose and lipid panel ordered for baseline monitoring. Agreed to a trial of Abilify 2.5 mg daily with plan to titrate. 01/05/22: The patient was admitted to the [facility] ([facility] mental health unit) on q15 min checks (behavioral with suicide precautions) for safety. The patient will participate in group, recreational, and milieu therapies and will be offered additional individual and family sessions as clinically appropriate. Risks/benefits/alternatives reviewed re: current medications. Discussion included but was not limited to FDA warnings re: SI. Agrees to hold Ritalin 20 mg Bid per PDMP, continue Zoloft and Wellbutrin pending additional coordination with outpatient psychiatrist. At this point I would recommend augmentation with Abilify for treatment refractory depression. Inventory Assets Strengths: intelligent, employed Needs: increase social network, increase coping skills Suicide Risk Level Suicide Risk Level: High-Moderate (q15 min suicide checks) Risk Factors Assessment Male: Yes : Yes Do You Have Access To A Gun?: No Mental Health Diagnoses: Yes Substance Use Disorders: No Previous Psychiatric Hospitalization: Yes Protective Factors Assessment : No Employed: Yes ([employer]) Supportive Family: No Interval History Identifying Information CAM MARTINEZ is a 21-year-old M who currently lives in [facility], has a history of inpatient admission 06/21/21 for SI with rehearsal behaviors, and was admitted on 01/04/22 19:43 on a 201 voluntary commitment for SI with multiple plans. Chief Complaint "yeah last night I was pretty direct that I plan to kill myself when I leave here but today is a little better I guess" Review of Systems Sleep Information Total Hours of Sleep: 7 Meal Information Percent Meal Consumed - Breakfast: 100 Percent Meal Consumed - Lunch: 100 Percent Meal Consumed - Dinner: 100 Subjective Subjective Patient was seen & assessed and interval progress reviewed with nursing and social work. significant discussion with patient around his activities/classes as he is significantly overscheduled. Discussed doing a realistic inventory of his time and consider time blocking. He is often off track with completing tasks as he is responding to email. Pointed out the inconsistency in not wanting to cut back time at work/activities out of obligation but if committed suicide it would be more disruptive. He lacks a mother figure for nurturing in life right now and how he's used achievement in past to gain worth from parents as a trauma response. Physical Exam Psychiatric Orientation: alert and oriented x 3 Apperance: appropriately dressed and appropriately groomed Eye Contact: good eye contact Motor Behavior: no abnormal motor movements Speech: normal rate/rhythm/volume of speech Affect: + depressed affect Mood: + depressed mood Thought Process: goal directed thought process Thought Content: reality based without delusions Suicidal Thoughts: denies suicidal intent (on unit); + reports suicidal thoughts and + reports suicidal plan Homicidal Thoughts: denies homicidal thoughts Hallucinations: no auditory hallucinations and no visual hallucinations Cognition: attention grossly intact and language grossly intact Estimated Intelligence: consistent with education level Insight: + limited insight Judgement: + limited judgement Vital Signs (Past 24 Hours) Last Vital Signs Temp 36.4 C L 01/07/22 06:43 Pulse 61 01/07/22 06:43 Resp 16 01/07/22 06:43 BP 94/52 L 01/07/22 06:43 Pulse Ox 98 01/04/22 20:31 O2 Del Method 01/04/22 20:31 Results & Data ([facility]) Laboratory Results Laboratory Results - last 24 hr 01/07/22 07:45 Fasting Glucose 86 Triglycerides 93 Cholesterol 126 LDL Cholesterol, Calc 45 VLDL Cholesterol, Calc 19 HDL Cholesterol 62 Cholesterol/HDL Ratio 2.0 Current Inpatient Medications Current Inpatient Medications: Current Inpatient Medications Acetaminophen (Acetaminophen 325 Mg Tab) 650 mg PO Q4H PRN PRN Reason: Headache or Minor Fever Stop: 02/03/22 19:42 Last Admin: 01/06/22 15:25 Dose: 650 mg Al Hydrox/Mg Hydrox/Simethicone (Aluminum/Magnesium Susp 30 Ml Udc) 30 ml PO Q4H PRN PRN Reason: GI Upset Stop: 02/03/22 19:42 Aripiprazole (Aripiprazole 5 Mg Tab) 5 mg PO QAM JONATHAN Stop: 02/07/22 08:59 Bismuth Subsalicylate (Bismuth Subsalicylate Liqd 236 Ml) 15 ml PO PRN PRN PRN Reason: Loose Stool Stop: 02/03/22 19:42 Bupropion HCl (Bupropion Xl 300 Mg Tabcr) 300 mg PO DAILY JONATHAN Stop: 02/04/22 10:14 Last Admin: 01/07/22 08:53 Dose: 300 mg Hydroxyzine HCl (Hydroxyzine Hcl 25 Mg Tab) 50 mg PO HSZ PRN PRN Reason: Insomnia Stop: 02/03/22 19:42 Hydroxyzine HCl (Hydroxyzine Hcl 25 Mg Tab) 25 mg PO Q4H PRN PRN Reason: Anxiety Stop: 02/03/22 19:42 Magnesium Hydroxide (Magnesium Hydroxide Susp 30 Ml Udc) 30 ml PO DAILY PRN PRN Reason: Constipation Stop: 02/03/22 19:42 Sodium Chloride (Sodium Chloride 0.65% Na Soln 45 Ml ([place])) 1 - 2 sprays NA PRN PRN PRN Reason: Nasal Dryness/Congestion Stop: 02/03/22 19:42 Trazodone HCl (Trazodone Hcl 50 Mg Tab) 50 mg PO HS JONATHAN Stop: 02/03/22 20:59 Last Admin: 01/06/22 22:15 Dose: 50 mg Mental Health & Subst Abuse Tx Therapist Name of Therapist: Teri Shepherd
[2022-01-07] MEDS: traZODone HCL 50 MG TAB PO SCH (22:07)
[2022-01-08] MEDS: buPROPion XL 300 MG TABCR PO SCH (08:49)
[2022-01-08] MEDS: ARIPiprazole 5 MG TAB PO SCH (08:49)
--- NOTE | 2022-01-08 15:43 | Psychiatric Progress Note ---
Date of Service January 08, 2022 Impression / Recommendations Impression 21 yo male with trauma hx, complex family dynamic, presents for 2nd inpatient hospitalization for SI, remains superficially involved in alot of activities but not functioning well, intense SI with plan to obtain gun. 01/08/2022: slow improvement (less irritable) (1) MDD (major depressive disorder), recurrent episode, severe: Plan 01/08/22: continue current meds and tx plan. 01/07/22: fasting labs reviewed, increase Abilify to 5 mg daily. SW to meet with [employer] and student care representatives given repeat hospitalization. 01/06/22: Risks/benefits/alternatives were reviewed re: antipsychotics for adjunctive treatment of depression. Discussion included but was not limited to metabolic side effects, risks of TD and suicidal thoughts. There were no ab normal motor movements at baseline. Fasting glucose and lipid panel ordered for baseline monitoring. Agreed to a trial of Abilify 2.5 mg daily with plan to titrate. 01/05/22: The patient was admitted to the [facility] ([facility] mental health unit) on q15 min checks (behavioral with suicide precautions) for safety. The patient will participate in group, recreational, and milieu therapies and will be offered additional individual and family sessions as clinically appropriate. Risks/benefits/alternatives reviewed re: current medications. Discussion included but was not limited to FDA warnings re: SI. Agrees to hold Ritalin 20 mg Bid per PDMP, continue Zoloft and Wellbutrin pending additional coordination with outpatient psychiatrist. At this point I would recommend augmentation with Abilify for treatment refractory depression. Inventory Assets Strengths: intelligent, employed Needs: increase social network, increase coping skills Suicide Risk Level Suicide Risk Level: High-Moderate (q15 min suicide checks) Risk Factors Assessment Male: Yes : Yes Do You Have Access To A Gun?: No Mental Health Diagnoses: Yes Substance Use Disorders: No Previous Psychiatric Hospitalization: Yes Protective Factors Assessment : No Employed: Yes ([employer]) Supportive Family: No Interval History Identifying Information CAM MARTINEZ is a 21-year-old M who currently lives in [facility], has a history of inpatient admission 06/21/21 for SI with rehearsal behaviors, and was admitted on 01/04/22 19:43 on a 201 voluntary commitment for SI with multiple plans. Chief Complaint "I was a 4.5 today, mainly was worried about classes." Review of Systems Sleep Information Total Hours of Sleep: 5.5 Meal Information Percent Meal Consumed - Breakfast: 100 Percent Meal Consumed - Lunch: 100 Percent Meal Consumed - Dinner: 100 Subjective Subjective Patient was seen & assessed and interval progress reviewed with treatment team. cooperative with unit routines. May behaving some mild sedation from Abilify but not interfering with participation. Physical Exam Psychiatric Orientation: alert and oriented x 3 Apperance: appropriately dressed and appropriately groomed Eye Contact: good eye contact Motor Behavior: no abnormal motor movements Speech: normal rate/rhythm/volume of speech Affect: + depressed affect Mood: + depressed mood Thought Process: goal directed thought process Thought Content: reality based without delusions Suicidal Thoughts: denies suicidal intent (on unit); + reports suicidal thoughts and + reports suicidal plan Homicidal Thoughts: denies homicidal thoughts Hallucinations: no auditory hallucinations and no visual hallucinations Cognition: attention grossly intact and language grossly intact Estimated Intelligence: consistent with education level Insight: + limited insight Judgement: + limited judgement Vital Signs (Past 24 Hours) Last Vital Signs Temp 36.8 C 01/08/22 06:52 Pulse 80 01/08/22 06:53 Resp 16 01/08/22 06:52 BP 96/58 L 01/08/22 06:53 Pulse Ox 98 01/04/22 20:31 O2 Del Method 01/04/22 20:31 Results & Data ([facility]) Current Inpatient Medications Current Inpatient Medications: Current Inpatient Medications Acetaminophen (Acetaminophen 325 Mg Tab) 650 mg PO Q4H PRN PRN Reason: Headache or Minor Fever Stop: 02/03/22 19:42 Last Admin: 01/06/22 15:25 Dose: 650 mg Al Hydrox/Mg Hydrox/Simethicone (Aluminum/Magnesium Susp 30 Ml Udc) 30 ml PO Q4H PRN PRN Reason: GI Upset Stop: 02/03/22 19:42 Aripiprazole (Aripiprazole 5 Mg Tab) 5 mg PO QAM JONATHAN Stop: 02/07/22 08:59 Last Admin: 01/08/22 08:49 Dose: 5 mg Bismuth Subsalicylate (Bismuth Subsalicylate Liqd 236 Ml) 15 ml PO PRN PRN PRN Reason: Loose Stool Stop: 02/03/22 19:42 Bupropion HCl (Bupropion Xl 300 Mg Tabcr) 300 mg PO DAILY JONATHAN Stop: 02/04/22 10:14 Last Admin: 01/08/22 08:49 Dose: 300 mg Hydroxyzine HCl (Hydroxyzine Hcl 25 Mg Tab) 50 mg PO HSZ PRN PRN Reason: Insomnia Stop: 02/03/22 19:42 Hydroxyzine HCl (Hydroxyzine Hcl 25 Mg Tab) 25 mg PO Q4H PRN PRN Reason: Anxiety Stop: 02/03/22 19:42 Magnesium Hydroxide (Magnesium Hydroxide Susp 30 Ml Udc) 30 ml PO DAILY PRN PRN Reason: Constipation Stop: 02/03/22 19:42 Sodium Chloride (Sodium Chloride 0.65% Na Soln 45 Ml ([place])) 1 - 2 sprays NA PRN PRN PRN Reason: Nasal Dryness/Congestion Stop: 02/03/22 19:42 Trazodone HCl (Trazodone Hcl 50 Mg Tab) 50 mg PO HS JONATHAN Stop: 02/03/22 20:59 Last Admin: 01/07/22 22:07 Dose: 50 mg Mental Health & Subst Abuse Tx Therapist Name of Therapist: Teri Shepherd
[2022-01-08] MEDS: traZODone HCL 50 MG TAB PO SCH (21:53)
[2022-01-09] MEDS: ARIPiprazole 5 MG TAB PO SCH (08:52)
[2022-01-09] MEDS: buPROPion XL 300 MG TABCR PO SCH (08:52)
--- NOTE | 2022-01-09 09:59 | Psychiatric Progress Note ---
Date of Service January 09, 2022 Impression / Recommendations Impression 21 yo male with trauma hx, complex family dynamic, presents for 2nd inpatient hospitalization for SI, remains superficially involved in alot of activities but not functioning well, intense SI with plan to obtain gun. 01/08/2022: reviewed interim progress per Dr. Calhoun's notes. Appears sertraline was discontinued in favor of augmentation of Wellbutrin with abilify. remains very depressed with ongoing SI with detailed plan outside the hospital. Tolerating abilify addition for depression augmentation. Remains at high acute risk given limited support, increasing challenges managing academic/RA obligations and significant mood symptoms with SI. (1) MDD (major depressive disorder), recurrent episode, severe: Plan 01/09/22: Continue current medication and tx plan. Consider CAMS approach. 01/08/22: continue current meds and tx plan. 01/07/22: fasting labs reviewed, increase Abilify to 5 mg daily. SW to meet with [employer] and student care representatives given repeat hospitalization. 01/06/22: Risks/benefits/alternatives were reviewed re: antipsychotics for adjunctive treatment of depression. Discussion included but was not limited to metabolic side effects, risks of TD and suicidal thoughts. There were no abnormal motor movements at baseline. Fasting glucose and lipid panel ordered for baseline monitoring. Agreed to a trial of Abilify 2.5 mg daily with plan to titrate. 01/05/22: The patient was admitted to the [facility] ([facility] mental health unit) on q15 min checks (behavioral with suicide precautions) for safety. The patient will participate in group, recreational, and milieu therapies and will be offered additional individual and family sessions as clinically appropriate. Risks/benefits/alternatives reviewed re: current medications. Discussion included but was not limited to FDA warnings re: SI. Agrees to hold Ritalin 20 mg Bid per PDMP, continue Zoloft and Wellbutrin pending additional coordination with outpatient psychiatrist. At this point I would recommend augmentation with Abilify for treatment refractory depression. Inventory Assets Strengths: intelligent, employed Needs: increase social network, increase coping skills Suicide Risk Level Suicide Risk Level: High-Moderate (q15 min suicide checks) (depression and SI with plan prior to admission, currently denies plan and feels safe in hospital and able to safety contract to alert nursing/[facility] staff should he feel unsafe or develop intensifying SI/plans for in the hospital ) Risk Factors Assessment Male: Yes : Yes Do You Have Access To A Gun?: No Mental Health Diagnoses: Yes Substance Use Disorders: No Previous Psychiatric Hospitalization: Yes Protective Factors Assessment : No Employed: Yes ([employer]) Supportive Family: No Interval History Identifying Information CAM MARTINEZ is a 21-year-old M who currently lives in [facility], has a history of inpatient admission 06/21/21 for SI with rehearsal behaviors, and was admitted on 01/04/22 19:43 on a 201 voluntary commitment for SI with multiple plans. Chief Complaint "I'm less tired today". Review of Systems Sleep Information Total Hours of Sleep: 8 Meal Information Percent Meal Consumed - Breakfast: 100 Percent Meal Consumed - Lunch: 100 Percent Meal Consumed - Dinner: 100 Subjective Subjective Patient was seen & assessed and interval progress reviewed with treatment team nursing and social work. Continues to experience SI with detailed plan outside the hospital though notes today these thoughts "aren't quite as much". Feels less tired today from morning abilify, wants to keep qAM dosing time. Feels he has no supports outside of college who he could live with if he left school/took a break. Unable to consider ways to reduce potential stressors at school. Wants to try to work on some school work as he worries about falling behind. Physical Exam Psychiatric Orientation: alert and oriented x 3 Apperance: appropriately dressed and appropriately groomed Eye Contact: good eye contact Motor Behavior: no abnormal motor movements Speech: normal rate/rhythm/volume of speech Affect: + depressed affect Mood: + depressed mood Thought Process: goal directed thought process Thought Content: reality based without delusions Suicidal Thoughts: denies suicidal intent (on unit); + reports suicidal thoughts and + reports suicidal plan (for outside hospital, none for in the hospital) Homicidal Thoughts: denies homicidal thoughts Hallucinations: no auditory hallucinations and no visual hallucinations Cognition: attention grossly intact and language grossly intact Estimated Intelligence: consistent with education level Insight: + limited insight Judgement: + limited judgement Vital Signs (Past 24 Hours) Last Vital Signs Temp 36.6 C 01/09/22 06:00 Pulse 70 01/09/22 06:44 Resp 18 01/09/22 06:00 BP 71/42 L 01/09/22 06:44 Pulse Ox 98 01/04/22 20:31 O2 Del Method 01/04/22 20:31 Results & Data ([facility]) Current Inpatient Medications Current Inpatient Medications: Current Inpatient Medications Acetaminophen (Acetaminophen 325 Mg Tab) 650 mg PO Q4H PRN PRN Reason: Headache or Minor Fever Stop: 02/03/22 19:42 Last Admin: 01/06/22 15:25 Dose: 650 mg Al Hydrox/Mg Hydrox/Simethicone (Aluminum/Magnesium Susp 30 Ml Udc) 30 ml PO Q4H PRN PRN Reason: GI Upset Stop: 02/03/22 19:42 Aripiprazole (Aripiprazole 5 Mg Tab) 5 mg PO QAM JONATHAN Stop: 02/07/22 08:59 Last Admin: 01/09/22 08:52 Dose: 5 mg Bismuth Subsalicylate (Bismuth Subsalicylate Liqd 236 Ml) 15 ml PO PRN PRN PRN Reason: Loose Stool Stop: 02/03/22 19:42 Bupropion HCl (Bupropion Xl 300 Mg Tabcr) 300 mg PO DAILY JONATHAN Stop: 02/04/22 10:14 Last Admin: 01/09/22 08:52 Dose: 300 mg Hydroxyzine HCl (Hydroxyzine Hcl 25 Mg Tab) 50 mg PO HSZ PRN PRN Reason: Insomnia Stop: 02/03/22 19:42 Hydroxyzine HCl (Hydroxyzine Hcl 25 Mg Tab) 25 mg PO Q4H PRN PRN Reason: Anxiety Stop: 02/03/22 19:42 Magnesium Hydroxide (Magnesium Hydroxide Susp 30 Ml Udc) 30 ml PO DAILY PRN PRN Reason: Constipation Stop: 02/03/22 19:42 Sodium Chloride (Sodium Chloride 0.65% Na Soln 45 Ml ([place])) 1 - 2 sprays NA PRN PRN PRN Reason: Nasal Dryness/Congestion Stop: 02/03/22 19:42 Trazodone HCl (Trazodone Hcl 50 Mg Tab) 50 mg PO HS JONATHAN Stop: 02/03/22 20:59 Last Admin: 01/08/22 21:53 Dose: 50 mg Mental Health & Subst Abuse Tx Therapist Name of Therapist: Teri Shepherd
[2022-01-09] MEDS: traZODone HCL 50 MG TAB PO SCH (22:34)
[2022-01-10] MEDS: buPROPion XL 300 MG TABCR PO SCH (08:57)
[2022-01-10] MEDS: ARIPiprazole 5 MG TAB PO SCH (08:57)
--- NOTE | 2022-01-10 09:39 | Psychiatric Progress Note ---
Date of Service January 10, 2022 Impression / Recommendations Impression 21 yo male with trauma hx, complex family dynamic, presents for 2nd inpatient hospitalization for SI, remains superficially involved in alot of activities but not functioning well, intense SI with plan to obtain gun. 01/10/2022: remains depressed with ongoing SI with plan, intensity lessening a bit. Explored some of the driving factors behind his SI. Tolerating abilify and Wellbutrin well. (1) MDD (major depressive disorder), recurrent episode, severe: Plan 01/10/22: Continue current medication and tx plan. 01/09/22: Continue current medication and tx plan. Consider CAMS approach. 01/08/22: continue current meds and tx plan. 01/07/22: fasting labs reviewed, increase Abilify to 5 mg daily. SW to meet with CAPS and student care representatives given repeat hospitalization. 01/06/22: Risks/benefits/alternatives were reviewed re: antipsychotics for adjunctive treatment of depression. Discussion included but was not limited to metabolic side effects, risks of TD and suicidal thoughts. There were no abnormal motor movements at baseline. Fasting glucose and lipid panel ordered for baseline monitoring. Agreed to a trial of Abilify 2.5 mg daily with plan to titrate. 01/05/22: The patient was admitted to the [facility] ([facility] inpatient mental health unit) on q15 min checks (behavioral with suicide precautions) for safety. The patient will participate in group, recreational, and milieu therapies and will be offered additional individual and family sessions as clinically appropriate. Risks/benefits/alternatives reviewed re: current medications. Discussion included but was not limited to FDA warnings re: SI. Agrees to hold Ritalin 20 mg Bid per PDMP, continue Zoloft and Wellbutrin pending additional coordination with outpatient psychiatrist. At this point I would recommend augmentation with Abilify for treatment refractory depression. Inventory Assets Strengths: intelligent, employed Needs: increase social network, increase coping skills Suicide Risk Level Suicide Risk Level: High-Moderate (q15 min suicide checks) (depression and SI with plan prior to admission, still with SI but no plan for hospital and feels safe in hospital and able to safety contract to alert nursing/BHU staff should he feel unsafe or develop intensifying SI/plans for in the hospital ) Risk Factors Assessment Male: Yes : Yes Do You Have Access To A Gun?: No Mental Health Diagnoses: Yes Substance Use Disorders: No Previous Psychiatric Hospitalization: Yes Protective Factors Assessment : No Employed: Yes ([employer]) Supportive Family: No Interval History Identifying Information CAM MARTINEZ is a 21-year-old M who currently lives in [facility], has a history of inpatient admission 06/21/21 for SI with rehearsal behaviors, and was admitted on 01/04/22 19:43 on a 201 voluntary commitment for SI with multiple plans. Chief Complaint "I'm doing fine". Review of Systems Sleep Information Total Hours of Sleep: 6.75 Meal Information Percent Meal Consumed - Breakfast: 100 Percent Meal Consumed - Lunch: 100 Percent Meal Consumed - Dinner: 100 Subjective Subjective Patient was seen & assessed and interval progress reviewed with treatment team nursing and social work. Attending groups. Discussed with him working on Feeling Good workbook and he stated he'd prefer to consider if this in the future as he prefers audiobooks. Today feels his SI is lessening but is still present. Feels being social with peers helps reduce his SI. Reviewed reasons he feels SI remains on his mind/discussed his reasons for living versus reasons for dying using CAMS framework. He noted that since no longer being connected to his confucianist he feels like he lost a sense of purpose in his life and that additionally the str ess with his family/lack of their support and school stress all contribute to his reasons for having SI. Physical Exam Psychiatric Orientation: alert and oriented x 3 Apperance: appropriately dressed and appropriately groomed Eye Contact: good eye contact Motor Behavior: no abnormal motor movements Speech: normal rate/rhythm/volume of speech Affect: + depressed affect Mood: + depressed mood Thought Process: goal directed thought process Thought Content: reality based without delusions Suicidal Thoughts: denies suicidal intent (on unit); + reports suicidal thoughts and + reports suicidal plan (for outside hospital, none for in the hospital) Homicidal Thoughts: denies homicidal thoughts Hallucinations: no auditory hallucinations and no visual hallucinations Cognition: attention grossly intact and language grossly intact Estimated Intelligence: consistent with education level Insight: + fair insight Judgement: + limited judgement Vital Signs (Past 24 Hours) Last Vital Signs Temp 36.6 C 01/10/22 06:00 Pulse 82 01/10/22 06:47 Resp 18 01/10/22 06:00 BP 92/51 L 01/10/22 06:47 Pulse Ox 98 01/04/22 20:31 O2 Del Method 01/04/22 20:31 Results & Data ([facility]) Current Inpatient Medications Current Inpatient Medications: Current Inpatient Medications Acetaminophen (Acetaminophen 325 Mg Tab) 650 mg PO Q4H PRN PRN Reason: Headache or Minor Fever Stop: 02/03/22 19:42 Last Admin: 01/06/22 15:25 Dose: 650 mg Al Hydrox/Mg Hydrox/Simethicone (Aluminum/Magnesium Susp 30 Ml Udc) 30 ml PO Q4H PRN PRN Reason: GI Upset Stop: 02/03/22 19:42 Aripiprazole (Aripiprazole 5 Mg Tab) 5 mg PO QAM JONATHAN Stop: 02/07/22 08:59 Last Admin: 01/10/22 08:57 Dose: 5 mg Bismuth Subsalicylate (Bismuth Subsalicylate Liqd 236 Ml) 15 ml PO PRN PRN PRN Reason: Loose Stool Stop: 02/03/22 19:42 Bupropion HCl (Bupropion Xl 300 Mg Tabcr) 300 mg PO DAILY JONATHAN Stop: 02/04/22 10:14 Last Admin: 01/10/22 08:57 Dose: 300 mg Hydroxyzine HCl (Hydroxyzine Hcl 25 Mg Tab) 50 mg PO HSZ PRN PRN Reason: Insomnia Stop: 02/03/22 19:42 Hydroxyzine HCl (Hydroxyzine Hcl 25 Mg Tab) 25 mg PO Q4H PRN PRN Reason: Anxiety Stop: 02/03/22 19:42 Magnesium Hydroxide (Magnesium Hydroxide Susp 30 Ml Udc) 30 ml PO DAILY PRN PRN Reason: Constipation Stop: 02/03/22 19:42 Sodium Chloride (Sodium Chloride 0.65% Na Soln 45 Ml ([place])) 1 - 2 sprays NA PRN PRN PRN Reason: Nasal Dryness/Congestion Stop: 02/03/22 19:42 Trazodone HCl (Trazodone Hcl 50 Mg Tab) 50 mg PO HS JONATHAN Stop: 02/03/22 20:59 Last Admin: 01/09/22 22:34 Dose: 50 mg Mental Health & Subst Abuse Tx Therapist Name of Therapist: Teri Shepherd
[2022-01-10 11:49] LABS: MDA negative; MDEA negative; MDMA (Ecstasy) Urine, Confirm negative
[2022-01-10] MEDS: traZODone HCL 50 MG TAB PO SCH (22:44)
[2022-01-11] MEDS: buPROPion XL 300 MG TABCR PO SCH (08:48)
[2022-01-11] MEDS: ARIPiprazole 5 MG TAB PO SCH (08:48)
--- NOTE | 2022-01-11 17:16 | Psychiatric Progress Note ---
Date of Service January 11, 2022 Impression / Recommendations Impression 21 yo male with trauma hx, complex family dynamic, presents for 2nd inpatient hospitalization for SI, remains superficially involved in alot of activities but not functioning well, intense SI with plan to obtain gun. 01/11/2022: remains depressed with ongoing SI with plan, but intensity lessening a bit and slightly more hopeful today. Using CAMS approach. Tolerating abilify and Wellbutrin well. (1) MDD (major depressive disorder), recurrent episode, severe: Plan 01/11/22: Continue current medication and tx plan. Exploring driving factors behind his SI. He does not want his parents involved with his care. 01/10/22: Continue current medication and tx plan. 01/09/22: Continue current medication and tx plan. Consider CAMS approach. 01/08/22: continue current meds and tx plan. 01/07/22: fasting labs reviewed, increase Abilify to 5 mg daily. SW to meet with CAPS and student care representatives given repeat hospitalization. 01/06/22: Risks/benefits/alternatives were reviewed re: antipsychotics for adjunctive treatment of depression. Discussion included but was not limited to metabolic side effects, risks of TD and suicidal thoughts. There were no abnormal motor movements at baseline. Fasting glucose and lipid panel ordered for baseline monitoring. Agreed to a trial of Abilify 2.5 mg daily with plan to titrate. 01/05/22: The patient was admitted to the [facility]) on q15 min checks (behavioral with suicide precautions) for safety. The patient will participate in group, recreational, and milieu therapies and will be offered additional individual and family sessions as clinically appropriate. Risks/benefits/alternatives reviewed re: current medications. Discussion included but was not limited to FDA warnings re: SI. Agrees to hold Ritalin 20 mg Bid per PDMP, continue Zoloft and Wellbutrin pending additional coordination with outpatient psychiatrist. At this point I would recommend augmentation with Abilify for treatment refractory depression. Inventory Assets Strengths: intelligent, employed Needs: increase social network, increase coping skills Suicide Risk Level Suicide Risk Level: High-Moderate (q15 min suicide checks) (depression and SI with plan prior to admission, still with SI but no plan for hospital and feels safe in hospital and able to safety contract to alert nursing/BHU staff should he feel unsafe or develop intensifying SI/plans for in the hospital ) Risk Factors Assessment Male: Yes : Yes Do You Have Access To A Gun?: No Mental Health Diagnoses: Yes Substance Use Disorders: No Previous Psychiatric Hospitalization: Yes Protective Factors Assessment : No Employed: Yes ([employer]) Supportive Family: No Interval History Identifying Information CAM MARTINEZ is a 21-year-old M who currently lives in [facility], has a history of inpatient admission 06/21/21 for SI with rehearsal behaviors, and was admitted on 01/04/22 19:43 on a 201 voluntary commitment for SI with multiple plans. Chief Complaint "I'm doing good". Review of Systems Sleep Information Total Hours of Sleep: 6 Meal Information Percent Meal Consumed - Breakfast: 100 Percent Meal Consumed - Lunch: 100 Percent Meal Consumed - Dinner: 100 Subjective Subjective Patient was seen & assessed and interval progress reviewed with treatment team nursing and social work. He reports mood improvement but continues to have SI. He feels it is getting closer to his chronic baseline "it's lessening". Agrees to work on CAMS approach to consider driving factors behind SI and ways we can modify his risk, help him feel better. He thinks he could consider "taking SI off the table" as he is feeling a bit more hopeful and notes "the stakes aren't as high" as he feels like he is moving away from feeling like he needs to go to medical which was causing him to stress about his grades. He emailed a professor regarding a class that had been contributing to his SI. 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 Explored impact of distress from being rejected by his family for his sexual orientation. Discussed ways he plans to navigate these challenges moving forward. Physical Exam Psychiatric Orientation: alert and oriented x 3 Apperance: appropriately dressed and appropriately groomed Eye Contact: good eye contact Motor Behavior: no abnormal motor movements Speech: normal rate/rhythm/volume of speech Affect: + depressed affect Mood: + depressed mood Thought Process: goal directed thought process Thought Content: reality based without delusions Suicidal Thoughts: denies suicidal intent (on unit); + reports suicidal thoughts and + reports suicidal plan (for outside hospital, none for in the hospital) Homicidal Thoughts: denies homicidal thoughts Hallucinations: no auditory hallucinations and no visual hallucinations Cognition: attention grossly intact and language grossly intact Estimated Intelligence: consistent with education level Insight: + fair insight Judgement: + limited judgement Vital Signs (Past 24 Hours) Last Vital Signs Temp 36.6 C 01/11/22 06:50 Pulse 93 H 01/11/22 06:51 Resp 16 01/11/22 06:50 BP 106/56 L 01/11/22 06:51 Pulse Ox 98 01/04/22 20:31 O2 Del Method 01/04/22 20:31 Results & Data ([facility]) Current Inpatient Medications Current Inpatient Medications: Current Inpatient Medications Acetaminophen (Acetaminophen 325 Mg Tab) 650 mg PO Q4H PRN PRN Reason: Headache or Minor Fever Stop: 02/03/22 19:42 Last Admin: 01/06/22 15:25 Dose: 650 mg Al Hydrox/Mg Hydrox/Simethicone (Aluminum/Magnesium Susp 30 Ml Udc) 30 ml PO Q4H PRN PRN Reason: GI Upset Stop: 02/03/22 19:42 Aripiprazole (Aripiprazole 5 Mg Tab) 5 mg PO QAM JONATHAN Stop: 02/07/22 08:59 Last Admin: 01/11/22 08:48 Dose: 5 mg Bismuth Subsalicylate (Bismuth Subsalicylate Liqd 236 Ml) 15 ml PO PRN PRN PRN Reason: Loose Stool Stop: 02/03/22 19:42 Bupropion HCl (Bupropion Xl 300 Mg Tabcr) 300 mg PO DAILY JONATHAN Stop: 02/04/22 10:14 Last Admin: 01/11/22 08:48 Dose: 300 mg Hydroxyzine HCl (Hydroxyzine Hcl 25 Mg Tab) 50 mg PO HSZ PRN PRN Reason: Insomnia Stop: 02/03/22 19:42 Hydroxyzine HCl (Hydroxyzine Hcl 25 Mg Tab) 25 mg PO Q4H PRN PRN Reason: Anxiety Stop: 02/03/22 19:42 Magnesium Hydroxide (Magnesium Hydroxide Susp 30 Ml Udc) 30 ml PO DAILY PRN PRN Reason: Constipation Stop: 02/03/22 19:42 Sodium Chloride (Sodium Chloride 0.65% Na Soln 45 Ml ([place])) 1 - 2 sprays NA PRN PRN PRN Reason: Nasal Dryness/Congestion Stop: 02/03/22 19:42 Trazodone HCl (Trazodone Hcl 50 Mg Tab) 50 mg PO HS JONATHAN Stop: 02/03/22 20:59 Last Admin: 01/10/22 22:44 Dose: 50 mg Mental Health & Subst Abuse Tx Therapist Name of Therapist: Teri Shepherd
[2022-01-11] MEDS: ACETAMINOPHEN 325 MG TAB PO PRN (19:43)
[2022-01-11] MEDS: traZODone HCL 50 MG TAB PO SCH (22:16)
[2022-01-12] MEDS: ARIPiprazole 5 MG TAB PO SCH (08:53)
[2022-01-12] MEDS: buPROPion XL 300 MG TABCR PO SCH (08:53)
--- NOTE | 2022-01-12 16:24 | Psychiatric Progress Note ---
Date of Service January 12, 2022 Impression / Recommendations Impression 21 yo male with trauma hx, complex family dynamic, presents for 2nd inpatient hospitalization for SI, remains superficially involved in alot of activities but not functioning well, intense SI with plan to obtain gun. 01/13/2022: depression improving slightly with more hopefulness and some reduction in intensity of SI with more reasons for living. Still with SI. Working on coping skills and concrete steps to help reduce modifiable driving factors for his SI. Discussed adding propranolol for possible akathisia from ability which he consents to. Reviewed potential side effects including but not limited to low BP, impact on mood/depression. (1) MDD (major depressive disorder), recurrent episode, severe: Plan 01/12/22: Add propranolol 10mg BID prn for restlessness. 01/11/22: Continue current medication and tx plan. Exploring driving factors behind his SI. He does not want his parents involved with his care. 01/10/22: Continue current medication and tx plan. 01/09/22: Continue current medication and tx plan. Consider CAMS approach. 01/08/22: continue current meds and tx plan. 01/07/22: fasting labs reviewed, increase Abilify to 5 mg daily. SW to meet with CAPS and student care representatives given repeat hospitalization. 01/06/22: Risks/benefits/alternatives were reviewed re: antipsychotics for adjunctive treatment of depression. Discussion included but was not limited to metabolic side effects, risks of TD and suicidal thoughts. There were no abnormal motor movements at baseline. Fasting glucose and lipid panel ordered for baseline monitoring. Agreed to a trial of Abilify 2.5 mg daily with plan to titrate. 01/05/22: The patient was admitted to the [facility] ([facility] inpatient mental health unit) on q15 min checks (behavioral with suicide precautions) for safety. The patient will participate in group, recreational, and milieu therapies and will be offered additional individual and family sessions as clinically appropriate. Risks/benefits/alternatives reviewed re: current medications. Discussion included but was not limited to FDA warnings re: SI. Agrees to hold Ritalin 20 mg Bid per PDMP, continue Zoloft and Wellbutrin pending additional coordination with outpatient psychiatrist. At this point I would recommend augmentation with Abilify for treatment refractory depression. Inventory Assets Strengths: intelligent, employed Needs: increase social network, increase coping skills Suicide Risk Level Suicide Risk Level: High-Moderate (q15 min suicide checks) (depression and SI with plan prior to admission, still with SI but no plan for hospital and feels safe in hospital and able to safety contract to alert nursing/BHU staff should he feel unsafe or develop intensifying SI/plans for in the hospital ) Risk Factors Assessment Male: Yes : Yes Do You Have Access To A Gun?: No Mental Health Diagnoses: Yes Substance Use Disorders: No Previous Psychiatric Hospitalization: Yes Protective Factors Assessment : No Employed: Yes ([employer]) Supportive Family: No Interval History Identifying Information CAM MARTINEZ is a 21-year-old M who currently lives in [facility], has a history of inpatient admission 06/21/21 for SI with rehearsal behaviors, and was admitted on 01/04/22 19:43 on a 201 voluntary commitment for SI with multiple plans. Chief Complaint "I'm good". Review of Systems Sleep Information Total Hours of Sleep: 6.5 Meal Information Percent Meal Consumed - Breakfast: 100 Percent Meal Consumed - Lunch: 100 Percent Meal Consumed - Dinner: 100 Subjective Subjective Patient was seen & assessed and interval progress reviewed with treatment team nursing and social work. Reports his mood is good but continues to have SI. Intensity is lessening and he's becoming more hopeful and future-oriented. 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 Feels that switching out of his masters program will help reduce his stress from school significantly which also contributes at times to his suicidality. Continues to feel that lack of acceptance by his parents due to his sexual orientation is the biggest driving factor for his depression, psychological pain, and biggest reason for dying/considering suicide. He finds the medications helpful for his mood and thinks they helping to lessen some of his SI. SI remains 2 out of 10 with 1 being the least and 10 the most. Does have some internal restlessness, reviewed possibility for mild akathisia. Physical Exam Psychiatric Orientation: alert and oriented x 3 Apperance: appropriately dressed and appropriately groomed Eye Contact: good eye contact Motor Behavior: no abnormal motor movements Speech: normal rate/rhythm/volume of speech Affect: + depressed affect Mood: + depressed mood and + anxious mood Thought Process: goal directed thought process Thought Content: reality based without delusions Suicidal Thoughts: denies suicidal intent; + reports suicidal thoughts and + reports suicidal plan (for outside hospital, none for in the hospital) Homicidal Thoughts: denies homicidal thoughts Hallucinations: no auditory hallucinations and no visual hallucinations Cognition: attention grossly intact and language grossly intact Estimated Intelligence: consistent with education level Insight: + fair insight Judgement: + limited judgement Vital Signs (Past 24 Hours) Last Vital Signs Temp 36.6 C 01/12/22 06:34 Pulse 84 01/12/22 06:34 Resp 16 01/12/22 06:34 BP 106/62 01/12/22 06:34 Pulse Ox 98 01/04/22 20:31 O2 Del Method 01/04/22 20:31 Results & Data ([facility]) Current Inpatient Medications Current Inpatient Medications: Current Inpatient Medications Acetaminophen (Acetaminophen 325 Mg Tab) 650 mg PO Q4H PRN PRN Reason: Headache or Minor Fever Stop: 02/03/22 19:42 Last Admin: 01/11/22 19:43 Dose: 650 mg Al Hydrox/Mg Hydrox/Simethicone (Aluminum/Magnesium Susp 30 Ml Udc) 30 ml PO Q4H PRN PRN Reason: GI Upset Stop: 02/03/22 19:42 Aripiprazole (Aripiprazole 5 Mg Tab) 5 mg PO QAM JONATHAN Stop: 02/07/22 08:59 Last Admin: 01/12/22 08:53 Dose: 5 mg Bismuth Subsalicylate (Bismuth Subsalicylate Liqd 236 Ml) 15 ml PO PRN PRN PRN Reason: Loose Stool Stop: 02/03/22 19:42 Bupropion HCl (Bupropion Xl 300 Mg Tabcr) 300 mg PO DAILY JONATHAN Stop: 02/04/22 10:14 Last Admin: 01/12/22 08:53 Dose: 300 mg Hydroxyzine HCl (Hydroxyzine Hcl 25 Mg Tab) 50 mg PO HSZ PRN PRN Reason: Insomnia Stop: 02/03/22 19:42 Hydroxyzine HCl (Hydroxyzine Hcl 25 Mg Tab) 25 mg PO Q4H PRN PRN Reason: Anxiety Stop: 02/03/22 19:42 Magnesium Hydroxide (Magnesium Hydroxide Susp 30 Ml Udc) 30 ml PO DAILY PRN PRN Reason: Constipation Stop: 02/03/22 19:42 Sodium Chloride (Sodium Chloride 0.65% Na Soln 45 Ml ([place])) 1 - 2 sprays NA PRN PRN PRN Reason: Nasal Dryness/Congestion Stop: 02/03/22 19:42 Trazodone HCl (Trazodone Hcl 50 Mg Tab) 50 mg PO HS JONATHAN Stop: 02/03/22 20:59 Last Admin: 01/11/22 22:16 Dose: 50 mg Mental Health & Subst Abuse Tx Psychiatrist Name of Psychiatrist: SASKIA Ervin Psychiatrist's Psychiatric Appointment Comment: [address] [place] [id number] Therapist Name of Therapist: Teri Shepherd Therapy Appointment Comment: [address] [place] [address] Post Discharge Appointments Primary Care Physician Name Of Family Doctor: [facility] Primary Care Provider Appointment Comment: follow up as needed
[2022-01-12] MEDS ORDERED: PROPRANOLOL HCL 10 MG TAB PO PRN (16:25)
[2022-01-12] MEDS: traZODone HCL 50 MG TAB PO SCH (23:08)
--- NOTE | 2022-01-13 08:45 | Psychiatric Progress Note ---
Date of Service January 13, 2022 Impression / Recommendations Impression 21 yo male with trauma hx, complex family dynamic, presents for 2nd inpatient hospitalization for SI, remains superficially involved in alot of activities but not functioning well, intense SI with plan to obtain gun. 01/13/2022: mood improving and no SI today. Tolerating medications without side effects. Future-oriented. Ongoing safety planning regarding ways to address acute and chronic modifiable risk factors. Discussed possibility of OCPD traits to why he can became somewhat trapped by his anxiety at times and how perfectionism can lead to increased anxiety and mood challenges and reviewed ways to address this. (1) MDD (major depressive disorder), recurrent episode, severe: Plan 01/13/22: Continue current medications and tx plan. 01/12/22: Add propranolol 10mg BID prn for restlessness. 01/11/22: Continue current medication and tx plan. Exploring driving factors behind his SI. He does not want his parents involved with his care. 01/10/22: Continue current medication and tx plan. 01/09/22: Continue current medication and tx plan. Consider CAMS approach. 01/08/22: continue current meds and tx plan. 01/07/22: fasting labs reviewed, increase Abilify to 5 mg daily. SW to meet with [employer] and student care representatives given repeat hospitalization. 01/06/22: Risks/benefits/alternatives were reviewed re: antipsychotics for adjun ctive treatment of depression. Discussion included but was not limited to metabolic side effects, risks of TD and suicidal thoughts. There were no abnormal motor movements at baseline. Fasting glucose and lipid panel ordered for baseline monitoring. Agreed to a trial of Abilify 2.5 mg daily with plan to titrate. 01/05/22: The patient was admitted to the [facility]) on q15 min checks (behavioral with suicide precautions) for safety. The patient will participate in group, recreational, and milieu therapies and will be offered additional individual and family sessions as clinically appropriate. Risks/benefits/alternatives reviewed re: current medications. Discussion included but was not limited to FDA warnings re: SI. Agrees to hold Ritalin 20 mg Bid per PDMP, continue Zoloft and Wellbutrin pending additional coordination with outpatient psychiatrist. At this point I would recommend augmentation with Abilify for treatment refractory depression. Inventory Assets Strengths: intelligent, employed Needs: increase social network, increase coping skills Suicide Risk Level Suicide Risk Level: Moderate (q15 min suicide checks) (depression and SI with plan prior to admission, now with improved mood, denies SI and feels safe in hospital and able to safety contract to alert nursing/[facility] staff should he feel unsafe or develop intensifying SI/plans for in the hospital ) Risk Factors Assessment Male: Yes : Yes Do You Have Access To A Gun?: No Mental Health Diagnoses: Yes Substance Use Disorders: No Previous Psychiatric Hospitalization: Yes Protective Factors Assessment : No Employed: Yes ([employer]) Supportive Family: No Interval History Identifying Information CAM MARTINEZ is a 21-year-old M who currently lives in [facility], has a history of inpatient admission 06/21/21 for SI with rehearsal behaviors, and was admitted on 01/04/22 19:43 on a 201 voluntary commitment for SI with multiple plans. Chief Complaint "I'm good". Review of Systems Sleep Information Total Hours of Sleep: 6.5 Meal Information Percent Meal Consumed - Breakfast: 100 Percent Meal Consumed - Lunch: 100 Percent Meal Consumed - Dinner: 100 Subjective Subjective Patient was seen & assessed and interval progress reviewed with treatment team nursing and social work. Mood slowly improving. States mood is "good" and no SI today for first time. [place] his restlessness improved after exercising last night, denies any symptoms of akathisia today. No medication side effects. Declines family or support meeting. Reviewed list he came up with for modifying some of his risk factors including ways to engage with a local muslim group, ways to reduce his academic stress and ways to utilize his current supports. Physical Exam Psychiatric Orientation: alert and oriented x 3 Apperance: appropriately dressed and appropriately groomed Eye Contact: good eye contact Motor Behavior: no abnormal motor movements Speech: normal rate/rhythm/volume of speech Affect: euthymic affect Mood: no depressed mood and no anxious mood Thought Process: goal directed thought process Thought Content: reality based without delusions Suicidal Thoughts: denies suicidal thoughts, denies suicidal plan and denies suicidal intent Homicidal Thoughts: denies homicidal thoughts Hallucinations: no auditory hallucinations and no visual hallucinations Cognition: attention grossly intact and language grossly intact Estimated Intelligence: consistent with education level Insight: + fair insight Judgement: + fair judgement Vital Signs (Past 24 Hours) Last Vital Signs Temp 36.5 C 01/13/22 06:52 Pulse 87 01/13/22 06:53 Resp 16 01/13/22 06:52 BP 93/51 L 01/13/22 06:53 Pulse Ox 98 01/04/22 20:31 O2 Del Method 01/04/22 20:31 Results & Data ([facility]) Current Inpatient Medications Current Inpatient Medications: Current Inpatient Medications Acetaminophen (Acetaminophen 325 Mg Tab) 650 mg PO Q4H PRN PRN Reason: Headache or Minor Fever Stop: 02/03/22 19:42 Last Admin: 01/11/22 19:43 Dose: 650 mg Al Hydrox/Mg Hydrox/Simethicone (Aluminum/Magnesium Susp 30 Ml Udc) 30 ml PO Q4H PRN PRN Reason: GI Upset Stop: 02/03/22 19:42 Aripiprazole (Aripiprazole 5 Mg Tab) 5 mg PO QAM OJNATHAN Stop: 02/07/22 08:59 Last Admin: 01/12/22 08:53 Dose: 5 mg Bismuth Subsalicylate (Bismuth Subsalicylate Liqd 236 Ml) 15 ml PO PRN PRN PRN Reason: Loose Stool Stop: 02/03/22 19:42 Bupropion HCl (Bupropion Xl 300 Mg Tabcr) 300 mg PO DAILY JONATHAN Stop: 02/04/22 10:14 Last Admin: 01/12/22 08:53 Dose: 300 mg Hydroxyzine HCl (Hydroxyzine Hcl 25 Mg Tab) 50 mg PO HSZ PRN PRN Reason: Insomnia Stop: 02/03/22 19:42 Hydroxyzine HCl (Hydroxyzine Hcl 25 Mg Tab) 25 mg PO Q4H PRN PRN Reason: Anxiety Stop: 02/03/22 19:42 Magnesium Hydroxide (Magnesium Hydroxide Susp 30 Ml Udc) 30 ml PO DAILY PRN PRN Reason: Constipation Stop: 02/03/22 19:42 Propranolol HCl (Propranolol Hcl 10 Mg Tab) 10 mg PO BID PRN PRN Reason: Restlessness/akathesia Stop: 02/11/22 20:59 Sodium Chloride (Sodium Chloride 0.65% Na Soln 45 Ml ([place])) 1 - 2 sprays NA PRN PRN PRN Reason: Nasal Dryness/Congestion Stop: 02/03/22 19:42 Trazodone HCl (Trazodone Hcl 50 Mg Tab) 50 mg PO HS JONATHAN Stop: 02/03/22 20:59 Last Admin: 01/12/22 23:08 Dose: 50 mg Mental Health & Subst Abuse Tx Psychiatrist Name of Psychiatrist: SASKIA Ervin Psychiatrist's Psychiatric Appointment Comment: [address] [place] [id number] Therapist Name of Therapist: Teri Shepherd [facility] Appointment Comment: [address] [place] [address] Post Discharge Appointments Primary Care Physician Name Of Family Doctor: [facility] Primary Care Provider Appointment Comment: follow up as needed
[2022-01-13] MEDS: buPROPion XL 300 MG TABCR PO SCH (08:54)
[2022-01-13] MEDS: ARIPiprazole 5 MG TAB PO SCH (08:55)
[2022-01-13] MEDS ORDERED: FLUARIX QUADRIVALENT 0.5 ML SYR IM ONE (17:16)
[2022-01-13] MEDS: traZODone HCL 50 MG TAB PO SCH (21:15)
[2022-01-14] MEDS: ARIPiprazole 5 MG TAB PO SCH (08:35)
[2022-01-14] MEDS: buPROPion XL 300 MG TABCR PO SCH (08:35)
--- NOTE | 2022-01-14 14:15 | Discharge Summary ---
Date of Service January 14, 2022 History of Present Illness Patient has been experiencing depression for nearly 2 years, typically worse after interacts with family who reject him for sexual orientation (bisexual). 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 He developed some friendships while on a [employer] trips this summer so socializing a little more but overall decline in mood the past 2-3 weeks. He reports starting Zoloft under the direction of Dr. Ervin and noted some improvement but developed "teeth chattering" on the 50 mg dose. He did not attend classes last week. Like last stay his thoughts include purchasing a weapon, cutting, connecting a hose to exhaust. He continues to see his therapist regularly and states that it was actually his therapist who drove him to the emergency room. His sleep has been fair and doesn't really comment on other ADLs. Doesn't feel he needs Ritalin here as not in classes. Physical Exam Vital Signs (Past 24 Hours) Last Vital Signs Temp 36.6 C 01/14/22 07:04 Pulse 60 01/14/22 07:04 Resp 18 01/14/22 07:04 BP 94/54 L 01/14/22 07:05 Pulse Ox 98 01/04/22 20:31 O2 Del Method 01/04/22 20:31 See admission H&P and DOD summary. Principal Diagnosis Major Depressive Disorder, recurrent with anxious distress Psychiatric Data See daily stay summary. In short, patient was engaged with the social/therape [facility] milieu of the unit, safety was maintained and the patient was cooperative with care. Given the acute exacerbation of his chronic SI, significant time was spent identifying and creating ways of reducing modifiable risk factors including use of the Collaborative Assessment & Management of Suicidality (CAMS) during his stay and on day of discharge (copies scanned into the chart). He identified significant reduction in his suicidal thoughts over the course of his stay including no suicidal ideation in the two days prior to discharge. Medication changes included discontinuation of sertraline due to side effects and initiation of abilify for depression augmentation and he tolerated this well. Baseline labs of fasting glucose, HbA1c, fasting lipid profile, and weight were preformed and WNL. Recommend repeat weight in one month. Recommend repeat fasting glucose, HbA1c and fasting lipid profile every 12 weeks and then annually. If symptoms arise recommend checking BP, EKG, prolactin level as clinically indicated or relevant. At one point there was concern for possible akathisia but this improved and propranolol was discontinued given low blood pressure and lack of benefit. He declined having a support session but was involved in coordination with [employer] student care and advocacy and actively involved with safety plan and CAMS stabilization plan was completed prior to discharge. He actively and insightfully participated in safety planning and in discussions about ways to seek support and recognizing warning signs and utilizing coping skills. Reviewed mobile apps that could be used for additional ways to have their safety plan and contacts easily available should thoughts of SI re-emerge in the future. Reviewed importance of seeking emergency care should SI intensify, worsen or should they feel unsafe in the future which they agree to do. 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 Day of Discharge Assessment Today the patient voices readiness for discharge. They note improvement in mood and anxiety. They deny thoughts of harm to self or others. Thoughts are organized and they are clinically improved from admission. There is no evidence of psychosis. They improved in the hospital with support and medication adjustments. They agree to take medications as prescribed and keep follow-up appointments. At the time of the discharge they are deemed to be stable and appropriate for outpatient level of care. They are not deemed to be at imminent risk of harm to self or others. They are aware of emergency and crisis services. Knows to call 911 or go to nearest emergency care center if in a crisis which cannot be handled as an outpatient. 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 Suicide Risk Level Suicide Risk Level Comments: Acute risk is low given improvement in mood and denial of SI, lack of access to lethal means, hopefulness, reduction in anxiety. Chronic risk is moderate to high given some non-modifiable risk factors including psychiatric co-morbid diagnoses, hx self-harm, emotional reactivity, prior psychiatric hospitalizations, family rejection, childhood trauma but also with protective fa ctors including good rapport with outpatient providers, tolerating medications well, improved relationship with sister/feels accepted by her, decided to pursue an alternative career path which has reduced academic stress. Counseled on ways to reduce acute and chronic risk using CAMS model as well as including engaging with outpatient providers, using safety plan if needed, utilizing supports, taki ng medication, and using coping skills. Modifiable risk factors of SI, anxiety and depression were addressed during hospitalization through development of new coping skills, safety planning, and medication adjustments. Risk Factors Assessment Male: Yes : Yes Do You Have Access To A Gun?: No Mental Health Diagnoses: Yes Substance Use Disorders: No Previous Attempt: No Family History of Suicide: No Previous Psychiatric Hospitalization: Yes Hopelessness: No Protective Factors Assessment : No Employed: Yes ([employer]) Stable Relationships: Yes Supportive Family: No Good Rapport with Provider: Yes Discharge Data Lab Results 01/04/22 01/04/22 01/04/22 16:30 16:30 16:30 WBC 8.21 RBC 4.97 Hgb 15.1 Hct 45.0 MCV 90.5 MCH 30.4 MCHC 33.6 RDW Std Deviation 41.5 RDW Coeff of Mariia 12.6 Plt Count 272 MPV 8.9 L Immature Gran % (Auto) 0.1 Neut % (Auto) 66.2 Lymph % (Auto) 25.0 [place] % (Auto) 7.6 Eos % (Auto) 0.7 Baso % (Auto) 0.4 Neut # (Auto) 5.44 Lymph # (Auto) 2.05 [place] # (Auto) 0.62 Eos # (Auto) 0.06 Baso # (Auto) 0.03 Immature Gran # (Auto) 0.01 Sodium 137 Potassium 4.2 Chloride 102 Carbon Dioxide 29 Anion Gap 6 BUN 10 Creatinine 0.94 Est Cr Clr Drug Dosing 122.4 Est GFR ( Amer) 133.8 Est GFR (Non-Af Amer) 115.4 BUN/Creatinine Ratio 10.6 Glucose 95 Fasting Glucose Calcium 9.9 Total Bilirubin 0.5 AST 15 ALT 13 Alkaline Phosphatase 57 Total Protein 8.1 Albumin 5.1 H Globulin 3.0 Albumin/Globulin Ratio 1.7 Triglycerides Cholesterol LDL Cholesterol, Calc VLDL Cholesterol, Calc HDL Cholesterol Cholesterol/HDL Ratio TSH 3.344 Urine Color Urine Appearance Urine pH Ur Specific [place] Urine Protein Urine Glucose (UA) Urine Ketones Urine Blood Urine Nitrite Urine Bilirubin Urine Urobilinogen Ur Leukocyte Esterase Salicylates Urine Opiates Screen Ur Methadone, Qual Acetaminophen Urine Barbiturates Ur Phencyclidine (PCP) U Amphetamin/Meth Scrn Urine MDEA MDMA (Ecstasy) Screen MDMA Urine MDMA U Benzodiazepines Scrn Ur Cocaine Metabolite U Marijuana (THC) Screen Ethyl Alcohol mg/dL SARS-CoV-2, RNA, NAAT 01/04/22 01/04/22 01/04/22 16:30 16:30 16:32 WBC RBC Hgb Hct MCV MCH MCHC RDW Std Deviation RDW Coeff of Mariia Plt Count MPV Immature Gran % (Auto) Neut % (Auto) Lymph % (Auto) [place] % (Auto) Eos % (Auto) Baso % (Auto) Neut # (Auto) Lymph # (Auto) [place] # (Auto) Eos # (Auto) Baso # (Auto) Immature Gran # (Auto) Sodium Potassium Chloride Carbon Dioxide Anion Gap BUN Creatinine Est Cr Clr Drug Dosing Est GFR ( Amer) Est GFR (Non-Af Amer) BUN/Creatinine Ratio Glucose Fasting Glucose Calcium Total Bilirubin AST ALT Alkaline Phosphatase Total Protein Albumin Globulin Albumin/Globulin Ratio Triglycerides Cholesterol LDL Cholesterol, Calc VLDL Cholesterol, Calc HDL Cholesterol Cholesterol/HDL Ratio TSH Urine Color Urine Appearance Urine pH Ur Specific [place] Urine Protein Urine Glucose (UA) Urine Ketones Urine Blood Urine Nitrite Urine Bilirubin Urine Urobilinogen Ur Leukocyte Esterase Salicylates < 3.0 L Urine Opiates Screen Ur Methadone, Qual Acetaminophen < 3 L Urine Barbiturates Ur Phencyclidine (PCP) U Amphetamin/Meth Scrn Urine MDEA MDMA (Ecstasy) Screen MDMA Urine MDMA U Benzodiazepines Scrn Ur Cocaine Metabolite U Marijuana (THC) Screen Ethyl Alcohol mg/dL < 10.0 SARS-CoV-2, RNA, NAAT NEGATIVE 01/04/22 01/04/22 01/04/22 16:40 16:40 16:40 WBC RBC Hgb Hct MCV MCH MCHC RDW Std Deviation RDW Coeff of Mariia Plt Count MPV Immature Gran % (Auto) Neut % (Auto) Lymph % (Auto) [place] % (Auto) Eos % (Auto) Baso % (Auto) Neut # (Auto) Lymph # (Auto) [place] # (Auto) Eos # (Auto) Baso # (Auto) Immature Gran # (Auto) Sodium Potassium Chloride Carbon Dioxide Anion Gap BUN Creatinine Est Cr Clr Drug Dosing Est GFR ( Amer) Est GFR (Non-Af Amer) BUN/Creatinine Ratio Glucose Fasting Glucose Calcium Total Bilirubin AST ALT Alkaline Phosphatase Total Protein Albumin Globulin Albumin/Globulin Ratio Triglycerides Cholesterol LDL Cholesterol, Calc VLDL Cholesterol, Calc HDL Cholesterol Cholesterol/HDL Ratio TSH Urine Color Yellow Urine Appearance Clear Urine pH 6.5 Ur Specific [place] 1.009 Urine Protein Negative Urine Glucose (UA) Negative Urine Ketones Negative Urine Blood Negative Urine Nitrite Negative Urine Bilirubin Negative Urine Urobilinogen Negative Ur Leukocyte Esterase Negative Salicylates Urine Opiates Screen Neg Ur Methadone, Qual Neg Acetaminophen Urine Barbiturates Neg Ur Phencyclidine (PCP) Neg U Amphetamin/Meth Scrn Neg Urine MDEA negative MDMA (Ecstasy) Screen Pos H MDMA negative Urine MDMA negative U Benzodiazepines Scrn Neg Ur Cocaine Metabolite Neg U Marijuana (THC) Screen Neg Ethyl Alcohol mg/dL SARS-CoV-2, RNA, NAAT 01/07/22 07:45 WBC RBC Hgb Hct MCV MCH MCHC RDW Std Deviation RDW Coeff of Mariia Plt Count MPV Immature Gran % (Auto) Neut % (Auto) Lymph % (Auto) [place] % (Auto) Eos % (Auto) Baso % (Auto) Neut # (Auto) Lymph # (Auto) [place] # (Auto) Eos # (Auto) Baso # (Auto) Immature Gran # (Auto) Sodium Potassium Chloride Carbon Dioxide Anion Gap BUN Creatinine Est Cr Clr Drug Dosing Est GFR ( Amer) Est GFR (Non-Af Amer) BUN/Creatinine Ratio Glucose Fasting Glucose 86 Calcium Total Bilirubin AST ALT Alkaline Phosphatase Total Protein Albumin Globulin Albumin/Globulin Ratio Triglycerides 93 Cholesterol 126 LDL Cholesterol, Calc 45 VLDL Cholesterol, Calc 19 HDL Cholesterol 62 Cholesterol/HDL Ratio 2.0 TSH Urine Color Urine Appearance Urine pH Ur Specific [place] Urine Protein Urine Glucose (UA) Urine Ketones Urine Blood Urine Nitrite Urine Bilirubin Urine Urobilinogen Ur Leukocyte Esterase Salicylates Urine Opiates Screen Ur Methadone, Qual Acetaminophen Urine Barbiturates Ur Phencyclidine (PCP) U Amphetamin/Meth Scrn Urine MDEA MDMA (Ecstasy) Screen MDMA Urine MDMA U Benzodiazepines Scrn Ur Cocaine Metabolite U Marijuana (THC) Screen Ethyl Alcohol mg/dL SARS-CoV-2, RNA, NAAT Hospital Course (1) MDD (major depressive disorder), recurrent episode, severe: Plan 01/13/22: Continue current medications and tx plan. 01/12/22: Add propranolol 10mg BID prn for restlessness. 01/11/22: Continue current medication and tx plan. Exploring driving factors behind his SI. He does not want his parents involved with his care. 01/10/22: Continue current medication and tx plan. 01/09/22: Continue current medication and tx plan. Consider CAMS approach. 01/08/22: continue current meds and tx plan. 01/07/22: fasting labs reviewed, increase Abilify to 5 mg daily. SW to meet with [employer] and student care representatives given repeat hospitalization. 01/06/22: Risks/benefits/alternatives were reviewed re: antipsychotics for adjunctive treatment of depression. Discussion included but was not limited to metabolic side effects, risks of TD and suicidal thoughts. There were no abnormal motor movements at baseline. Fasting glucose and lipid panel ordered for baseline monitoring. Agreed to a trial of Abilify 2.5 mg daily with plan to titrate. 01/05/22: The patient was admitted to the [facility] ([facility] inpatient mental health unit) on q15 min checks (behavioral with suicide precautions) for safety. The patient will participate in group, recreational, and milieu therapies and will be offered additional individual and family sessions as clinically appropriate. Risks/benefits/alternatives reviewed re: current medications. Discussion included but was not limited to FDA warnings re: SI. Agrees to hold Ritalin 20 mg Bid per PDMP, continue Zoloft and Wellbutrin pending additional coordination with outpatient psychiatrist. At this point I would recommend augmentation with Abilify for treatment refractory depression. Mental Health & Subst Abuse Tx Psychiatrist Name of Psychiatrist: ZINA- Dr. Ervin Psychiatrist's Date of Appointment with Psychiatrist: 01/25/22 Time of Appointment with Psychiatrist: 2pm Psychiatric Appointment Comment: In person (can be telehealth if requested) Therapist Name of Therapist: Teri Shepherd Therapist's ext. 11 Date of Therapist Appointment: 01/25/22 Time of Therapist Appointment: 3:00 PM Therapy Appointment Comment: Allison Churchill, [place], [place] Post Discharge Appointments Primary Care Physician Name Of Family Doctor: [facility] Primary Care Provider Appointment Comment: follow up as needed Other #1: Name of Aftercare Appointment: Student Gray and Ilia Brice Phone Number of Aftercare Appointment: [phone] Date of Aftercare Appointment: 01/18/22 Time of Aftercare Appointment: 10am Aftercare Appointment Comment: Zoom link will be sent to U email #2: Name of Aftercare Appointment: SASKIA Gaona (clinical check-in) Phone Number of Aftercare Appointment: [phone] Date of Aftercare Appointment: 01/18/22 Time of Aftercare Appointment: 3:30pm Aftercare Appointment Comment: [facility] #3: Name of Aftercare Appointment: [facility] Phone Number of Aftercare Appointment: [phone] Date of Aftercare Appointment: 02/01/22 Time of Aftercare Appointment: 2:30pm Aftercare Appointment Comment: [address] [place], [place] Contact Information Discharge Discharge Address: [address] [place] [address] Discharge Plan Discharge Items Patient Disposition: Home - Self-Care Reason For Visit: MDD Discharge Diagnosis: Major Depressive Disorder, recurrent with anxious distress Activity: Resume your previous activity Non-emergency contact: Primary Care Provider, Psychiatrist, Therapist and Collar Trimmer Call non-emergency contact if: you have any medication questions and your symptoms worsen Follow-up/Referrals: Pompeys Pillar,[facility] [Primary Care Provider] - Diet: Regular Addtl Attending Provider Instructions: SPECIAL CARE INSTRUCTIONS: 1. Follow through with your scheduled aftercare appointments. If unable to keep an appointment, please call to reschedule. 2. Take your medication only as prescribed. Medication should not be changed or stopped without the approval of your doctor. In the event of worsening symptoms or concerns about side effects, contact your doctor immediately. 3. Utilize new healthy coping skills, anger management skills, and stress management skills learned during your hospitalization. Journal feelings and process them with a support person. Identify stressors or situations that may result in relapse, deterioration or inappropriate behaviors and develop a plan to deal with those issues. 4. If your coping skills are ineffective and you are in crisis, contact your outpatient providers for direction. If unable to reach your providers, please call the [facility] CRISIS LINE AT , go to the [facility] walk-in center at [address], [address], [place], or go to the closest Emergency Room. 5. Avoid alcohol and un-prescribed drugs. 6. You have been provided with the Mental Health Advance Directives Pamphlet for your review. 7. Your condition is stable for discharge to outpatient level of care, but recovery is an ongoing process. Ifthoughts to harm yourself or others return, follow the safety plan developed during your stay. Planning for a safe return home includes securing weapons. Our treatment team recommends weaponsbe removed from the home until your outpatient provider reassesses your progress. In rare cases where the items themselvescannot be removed, guns and ammunitionshould be secured separatelyand keys stored by a reliable personoutside of the home. If you were admitted on an involuntary commitment, the police or other legal authorities may be involved in this process. AFTERCARE APPOINTMENTS: * Please call your insurance company prior to your scheduled appointment to confirm your aftercare providers are covered. Take your insurance information to your appointments. WHO TO CALL AND WHEN: Medical Emergencies: For questions or emergencies related to your hospital stay, please contact the Inpatient Behavioral Health Unit at [phone]. A security patrol officer is on-call 18/10 for the Behavioral Health Unit for emergencies At any time you feel your situation is an emergency, you may also call 911 immediately. Pending Studies at Discharge: No Stand-Alone Forms: My [facility] Medications and DC Order Prescriptions: New trazodone 50 mg Tablet 50 mg PO HS 30 Days Qty: 30 0RF aripiprazole [Abilify] 5 mg Tablet 5 mg PO QAM 30 Days Qty: 30 0RF bupropion HCl 300 mg Tablet Extended Release 24 Hr 300 mg PO DAILY 30 Days Qty: 30 0RF Discontinued sertraline [Zoloft] 25 mg Tablet 25 mg PO DAILY bupropion HCl [Wellbutrin XL] 300 mg Tablet Extended Release 24 Hr 300 mg PO DAILY methylphenidate HCl 20 mg Tablet 20 mg PO BID trazodone 50 mg Tablet 50 mg PO HS 30 Days Qty: 30 0RF Discharge Orders: Discharge Order (Routine); Ordered 01/14/22 Ordered By: Eboni Quiros Admission Data Admit Date/Time: 01/04/22 19:43 Attending Provider: Celeste Calhoun Admit Provider: Celeste Calhoun Primary Care Provider: Pompeys Pillar,[facility] Other Interventions: Discharge Summary Assessment (RN) Last Done: 01/14/22 16:50 Coding Level of Care Code 75488 D/C day mgmt > 30 min Diagnoses MDD (major depressive disorder), recurrent episode, severe F33.2 Time Spent (min) 60
== END 2022-01-14 18:00 | disposition home or self-care (01) | DRG 885 ==
LOC: ED 15:36 → 3S 19:43